=== PATIENT | female | born 1960 | race Caucasian/White ===

== ENCOUNTER → 2016-09-27 | Outpatient (CLI) | payer BC, OTHER ==
[~2016-09-27] MED LIST: ADVIN50050 INH; CETI10TA84 PO; LAMO100T16 PO; SNG10 PO; SYN100 PO
--- NOTE | 2016-09-27 08:54 | DIAGNOSTIC IMAGING REPORT ---
EXAMINATION: RENAL ULTRASOUND CLINICAL HISTORY: Left-sided abdominal pain COMPARISON STUDY: FINDINGS: The right kidney measures 11.4 cm. The left kidney measures 11.1 cm. There is no evidence of hydronephrosis. There are no renal masses. No bladder abnormalities are visualized. Bilateral ureteral jets were visualized. IMPRESSION : Normal renal ultrasound. Electronically signed by: Kenny Jameson M.D. 09/27/2016 8:53 AM Dictated Date/Time: 09/27/2016 8:47 AM
== END | disposition home or self-care (01) ==
LOC: C.ULTRBC 08:19
PROVIDERS: ATTEND Family Medicine
DX: M54.9 Dorsalgia, unspecified (principal); R10.812 Left upper quadrant abdominal tenderness

== ENCOUNTER → 2016-10-05 | Outpatient (CLI) | payer BC, OTHER ==
--- NOTE | 2016-10-05 15:01 | DIAGNOSTIC IMAGING REPORT ---
CT SCAN OF THE ABDOMEN AND PELVIS WITHOUT CONTRAST CLINICAL HISTORY: Left upper quadrant abdominal pain. Possible renal colic. COMPARISON STUDY: No previous studies for comparison. TECHNIQUE: CT scan of the abdomen and pelvis was performed from the lung bases to the proximal femurs. Images are reviewed in the axial, sagittal, and coronal planes. IV contrast was not administered for this examination. CT DOSE: 1050.66 mGycm FINDINGS: Lower chest: The heart is normal in size and configuration, without pericardial effusion. The lung bases and pleural spaces are clear. Liver: Multiple subcentimeter hepatic hypodensities are visualized. These approach water attenuation likely reflect cysts or biliary hamartomas.. Gallbladder: Cholelithiasis. Spleen: Normal in size and attenuation. And Pancreas: Unremarkable. Adrenal glands: Unremarkable. Kidneys: There are nonobstructing bilateral renal calculi. The largest calculus is located on the right measuring 3 mm. No ureteral or bladder calculi are visualized. Bowel: There are no transition zones indicate bowel obstruction. There is no acute diverticulitis. The appendix is normal. Peritoneum: There is no intraperitoneal free air or abdominal ascites. There is a ringlike fatty density within the left lower quadrant consistent with a area of prior fatty process. Vasculature: The abdominal aorta is normal in course and caliber. Adenopathy: None. Pelvic viscera: There is a 43 mm ringlike calcification within the uterus, consistent with a degenerating fibroid Skeletal structures: No destructive osseous lesions are seen. IMPRESSION: 1. Bilateral nephrolithiasis. No ureteral or bladder calculi identified 2. No evidence of bowel obstruction. No evidence of free air 3. Cholelithiasis 4. Normal appendix 5. Scattered colonic diverticula. No evidence of acute diverticulitis 6. 43 mm degenerating fibroid 7. 27 mm area of fat necrosis within the peritoneum of the left lower quadrant 8. Nonspecific subcentimeter hypodensities within the liver, likely reflecting small cysts or hamartomas Electronically signed by: Kenny Jameson M.D. 10/05/2016 3:00 PM Dictated Date/Time: 10/05/2016 2:53 PM
== END | disposition home or self-care (01) ==
LOC: C.CTS 13:20
PROVIDERS: ATTEND Family Medicine
DX: M54.9 Dorsalgia, unspecified (principal); R10.812 Left upper quadrant abdominal tenderness; N20.0 Calculus of kidney; K80.20 Calculus of gallbladder without cholecystitis without obstruction; K57.30 Diverticulosis of large intestine without perforation or abscess without bleeding; D21.9 Benign neoplasm of connective and other soft tissue, unspecified; K65.4 Sclerosing mesenteritis; R93.2 Abnormal findings on diagnostic imaging of liver and biliary tract

== ENCOUNTER → 2016-11-26 | Outpatient (CLI) | payer BC, OTHER ==
--- NOTE | 2016-11-30 14:57 | MAMMOGRAPHY REPORT ---
BILATERAL DIGITAL SCREENING MAMMOGRAM TOMOSYNTHESIS WITH CAD: 11/26/2016 CLINICAL HISTORY: Routine screening. Patient has no complaints. TECHNIQUE: Breast tomosynthesis in addition to standard 2D mammography was performed. Current study was also evaluated with a Computer Aided Detection (CAD) system. COMPARISON: Comparison is made to exams dated: 11/01/2014 mammogram, 11/05/2015 mammogram, 10/30/2013 ma mmogram, 08/01/2012 mammogram, 07/15/2011 mammogram - [facility], and 10/16/2008. BREAST COMPOSITION: There are scattered areas of fibroglandular density in both breasts. FINDINGS: No suspicious masses, calcifications, or areas of architectural distortion are noted in e ither breast. There has been no significant interval change compared to prior exams. IMPRESSION: ACR BI-RADS CATEGORY 1: NEGATIVE There is no mammographic evidence of malignancy. A 1 year screening mammogram is recommended. The p atient will receive written notification of the results. Approximately 10% of breast cancers are not detected with mammography. A negative mammographic repor t should not delay biopsy if a clinically suggestive mass is present. Brisa Henao M.D. ah/:11/26/2016 16:32:08 Muff Winder: Janina [place](Eduardo)(Dary), [facility] letter sent: Normal 1/2 BI-RADS Code: ACR BI-RADS Category 1: Negative
== END | disposition home or self-care (01) ==
LOC: C.MAMM 11:23
PROVIDERS: ATTEND Nurse Practitioner
DX: Z12.31 Encounter for screening mammogram for malignant neoplasm of breast (principal)

== ENCOUNTER → 2017-04-26 | Outpatient (CLI) | payer BC, OTHER ==
--- NOTE | 2017-04-26 16:03 | DIAGNOSTIC IMAGING REPORT ---
CHEST 2 VIEWS ROUTINE HISTORY: Chronic atypical chest pain. COMPARISON: Chest 08/31/2013. FINDINGS: The lungs are clear. Cardiac silhouette is normal in size. No pleural effusions. No pneumothorax. IMPRESSION: No acute process. Electronically signed by: Idris Interiano M.D. 04/26/2017 4:01 PM Dictated Date/Time: 04/26/2017 4:00 PM
== END | disposition home or self-care (01) ==
LOC: C.RAD1850 15:34
PROVIDERS: ATTEND Nurse Practitioner Family
DX: G89.29 Other chronic pain (principal); M25.50 Pain in unspecified joint; H04.123 Dry eye syndrome of bilateral lacrimal glands; R53.81 Other malaise; L95.9 Vasculitis limited to the skin, unspecified

== ENCOUNTER 2020-03-30 05:40 | Observation (INO) ==
[2020-03-30] MEDS ORDERED: NITROGLYCERIN SL 0.4 MG/TAB TAB SL STA (05:49)
--- NOTE | 2020-03-30 05:55 | Emergency Department Note ---
Impression & Plan Substernal chest pain ED Provider Note Name: KENN AGUILAR Age: 59 Sex: F Arrives Via: Ambulance Informant: Patient ED Provider: Jose Cruz MD Chief Complaint: Chest Pain Impression: Substernal Chest Pain Medical Decision Makin yr old female with history Asthma, Allergies, Seizure, HTN, Hypothyroid, Migraines, DLP, Kidney Stones though no CAD history who arrives with substernal chest pressure. Initial exam benign with clear lungs, soft abdomen and good pulses. EKG OK and cxr unremarkable. Labs unremarkable. She notes chest pain resolved with SLNTG here. Given age and risk will need cardiac rule out and hospitalist consulted for further management. Triage/Nursing Notes reviewed by Me Additional history obtained from chart Differentials:Cardiac ischemia, aortic dissection, pulmonary embolism, pneumothorax, pneumonia, pericarditis, myocarditis, esophageal rupture, GERD, cholecystitis, pancreatitis, musculoskeletal, as well as other pathologies. Vital Signs: reviewed and remarkable for HTN Interventions: SLNTG Labs:Reviewed and remarkable for no significant abnormalities Imaging:X ray results are stated below per my interpretation: Chest: 1 view: No infiltrate, no effusion, normal cardiac border. EKG:Per My Interpretation: Indication Chest pain: NSR 75 bpm, qtc 431. No Ectopy. No Ischemia. No previous for comparison Cardiac/Tele Monitoring: Cardiac Monitoring: An Order was placed for continuous cardiac monitoring. The monitor shows a rate of 80 with a normal sinus rhythm. Consults:Dr Johnathan HINOJOSA Hospitalist Plan: Disposition:Hospitalization. Condition: Good History of Present Illness:59 yr old female arrives for evaluation of chest pain. Patient notes that she was awoken around 2:30 am with substernal chest pressure. Initially mild but gradually worsening. Came and went a bit over the next hour. Nothing made better nor worse. Associated dizziness, mild short of breath and feeling weak. No radiation of pain. Denies syncope, nausea, vomiting, abdominal pain, back pain, fevers, chills, leg swelling, calf pain, headache, neck pain, urinary/bowel changes, rashes nor other symptoms. EMS contacted and brought her to ED for further evaluation. ASA 324mg PO given by EMS. No recent travel nor pe/dvt risks. No known sick contacts nor covid exposure. Notes recent addition of chlorthalidone for HTN management about a week ago. ROS: See above HPI for pertinent positives & negatives. A total of 10 systems reviewed and were otherwise negative. Past Medical History:Asthma, Allergies, Seizure, HTN, Hypothyroid, Migraines, DLP, Kidney Stones Past Surgical History:Laproscopy, Arthroscopy Family History:Grandparents had strokes Social History:, lives alone, no smoking Home Medications:See Below Allergies:Tegretal, depakot, dilantin Vitals:Blood Pressure: 140/86, Pulse 73, RR 16, T 36.6C, O2 97% on RA Physical Exam: GENERAL: Patient is anxious appearing and in mild distress. EYES: No scleral icterus, unremarkable pupils. ENT: Mucous membranes moist, no nasal congestion. NECK: No masses appreciated, nomeningismus, trachea is midline. RESPIRATORY: No dyspnea. Clear to auscultation and equal bilaterally. No wheeze, no rhonchi. CARDIOVASCULAR: Regular rate and rhythm.No murmurs, rubs, gallops appreciated. GASTROINTESTINAL: Abdomen soft, non-tender, no peritonitis.Bowel sounds positive.No masses appreciated. BACK: No midline tenderness, no CVA tenderness EXTREMITIES: Normal motion all extremities, no cyanosis, no edema. NEUROLOGIC: Alert and oriented, no acute motor or sensory deficits, no focal weakness, cranial nerves grossly intact. SKIN: No rash, no jaundice, no diaphoresis. PSYCH: Appropriate GCS: 15 ED Course: Times/Reassessments: Resolution of pain with slntg Jose Cruz MD Past Med/Surg History Medical History (Updated 03/30/20 @ 13:49 by John Mann MD) Asthma Cataract and glaucoma syndrome Chronic back pain Congenital anomaly of cerebrovascular system Gall stone Hyperlipidemia Hypothyroidism Kidney stones Migraine Osteoarthritis Rheumatoid arthritis Seizure Surgical History History of arthroscopy History of laparoscopy Family History (Updated 03/30/20 @ 13:45 by John Mann MD) Brother Deep vein thrombosis Grandfather (Maternal) Deep vein thrombosis Grandfather (Paternal) Deep vein thrombosis Other Cancer Diabetes Hypertension Stroke Social History Smoking Status: Never smoker Hx Alcohol Use: Yes Alcohol type: wine Hx Substance Use: No Preferred Language: Armenian Communication Ability: Effective 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: No Beliefs That Will Affect Care: None marital status: / Current Living Situation: Alone Other Information That Helps Us Care for You: No Feels Safe at Home: Yes Safety Concerns: Feels Safe At This Time Assistive Devices: None Allergies Allergies Allergy/AdvReac Type Severity Reaction Status Date / Time carbamazepine [From Tegretol] Allergy Intermediate Hives Verified 03/30/20 06:30 divalproex sodium Allergy Intermediate Hives Verified 03/30/20 06:30 [From Depakote] phenytoin [From Dilantin] Allergy Intermediate Hives Verified 03/30/20 06:30 Home Meds Home Medications Medication Instructions Recorded Confirmed levothyroxine 100 mcg PO DAILY 03/20/18 03/30/20 simvastatin 40 mg PO PM 03/20/18 03/30/20 rizatriptan 10 mg disintegrating 10 mg PO .COMPLEX PRN tab 01/31/19 03/30/20 tablet lamotrigine 100 mg tablet 100 mg PO BID 11/12/19 03/30/20 chlorthalidone 25 mg PO Q OTHER DAY 03/30/20 03/30/20 omeprazole 20 mg PO DAILY 03/30/20 03/30/20 Previous Rx's Medication Instructions Recorded cetirizine 10 mg capsule 10 mg PO DAILY #90 cap 04/20/19 albuterol sulfate 90 mcg/actuation 2 puffs INHALATION .COMPLEX PRN #3 09/24/19 aerosol inhaler inhaler budesonide-formoterol HFA 160 2 puffs INH BID #3 inhaler 09/27/19 mcg-4.5 mcg/actuation aerosol inhaler montelukast 10 mg tablet 10 mg PO DAILY #90 tab 01/08/20 Results & Data (ED) Vital Signs Vital Signs - 24 hr 03/30/20 05:49 03/30/20 06:00 03/30/20 06:30 Temperature 36.6 C Temperature Source Oral Pulse Rate 80 80 73 Pulse Rate [Left Finger] Pulse Rate from SpO2 Sensor 80 74 Respiratory Rate 17 18 17 Respiratory Effort / Characteristics Non-Labored Spontaneous Respiratory Depth Normal Blood Pressure 159/81 H 141/79 H 140/86 Blood Pressure [Left Arm] Blood Pressure Mean 107 89 106 Blood Pressure Mean [Left Arm] Pulse Oximetry 99 95 97 Oxygen Delivery Method Room Air Room Air Room Air Sepsis New/Unexplained Change in Mental Status N/A Sepsis Action Taken by Nursing No Action Required 03/30/20 06:58 Temperature Temperature Source Pulse Rate Pulse Rate [Left Finger] 73 Pulse Rate from SpO2 Sensor Respiratory Rate 16 Respiratory Effort / Characteristics Respiratory Depth Blood Pressure Blood Pressure [Left Arm] 140/86 Blood Pressure Mean Blood Pressure Mean [Left Arm] 104 Pulse Oximetry 97 Oxygen Delivery Method Room Air Sepsis New/Unexplained Change in Mental Status Sepsis Action Taken by Nursing Laboratory Data Result diagrams: 03/30/20 05:45 03/30/20 05:45 Lab Results 03/30/20 03/30/20 03/30/20 Range/Units 05:45 05:45 05:45 WBC 8.18 (4.8-10.8) K/uL RBC 5.02 (4.2-5.4) M/uL Hgb 14.0 (12.0-16.0) g/dL Hct 43.1 (37-47) % MCV 85.9 (80-100) fL MCH 27.9 (25-34) pg MCHC 32.5 (32-36) g/dL RDW Std Deviation 42.4 (36.4-46.3) fL RDW Coeff of Briana 13.6 (11.5-14.5) % Plt Count 221 (130-400) K/uL MPV 9.4 (7.4-10.4) fL Immature Gran % (Auto) 0.2 % Neut % (Auto) 74.6 % Lymph % (Auto) 15.6 % Rush % (Auto) 6.4 % Eos % (Auto) 2.8 % Baso % (Auto) 0.4 % Neut # (Auto) 6.10 (1.4-6.5) K/uL Lymph # (Auto) 1.28 (1.2-3.4) K/uL Rush # (Auto) 0.52 (0.11-0.59) K/uL Eos # (Auto) 0.23 (0-0.5) K/uL Baso # (Auto) 0.03 (0-0.2) K/uL Immature Gran # (Auto) 0.02 (0.00-0.02) K/uL Sodium 137 (136-145) mmol/L Potassium 3.6 (3.5-5.1) mmol/L Chloride 101 (98-107) mmol/L Carbon Dioxide 28 (21-32) mmol/L Anion Gap 8.0 (3-11) BUN 26 H (7-18) mg/dl Creatinine 0.82 (0.6-1.2) mg/dl Est Cr Clr Drug Dosing 86.5 ml/min Est GFR ( Amer) 90.1 Est GFR (Non-Af Amer) 77.8 BUN/Creatinine Ratio 31.4 H (10-20) Glucose 116 H (70-99) mg/dl Calcium 9.2 (8.5-10.1) mg/dl Total Bilirubin 0.4 (0.2-1) mg/dl Direct Bilirubin < 0.1 (0-0.2) mg/dl AST 17 (15-37) U/L ALT 25 (12-78) U/L Alkaline Phosphatase 69 (45-117) U/L Troponin I < 0.015 (0-0.045) ng/ml Total Protein 6.8 (6.4-8.2) gm/dl Albumin 3.6 (3.4-5.0) gm/dl Lipase 104 (73-393) U/L Hepatitis C Ab Screen Neg (Neg) Administered Medications Cetirizine HCl (Cetirizine Hcl 10 Mg Tablet) 10 mg PO DAILY TRACY Stop: 04/29/20 11:29 Last Admin: 03/30/20 13:05 Dose: 10 mg Documented by: [id number] Chlorthalidone (Chlorthalidone 25 Mg Tab) 25 mg PO Q2D TRACY Stop: 04/29/20 11:29 Last Admin: 03/30/20 13:03 Dose: 25 mg Documented by: [id number] Lamotrigine (Lamotrigine 100 Mg Tab) 100 mg PO BID TRACY Stop: 04/29/20 11:29 Last Admin: 03/30/20 20:23 Dose: 100 mg Documented by: [id number] Admin: 03/30/20 13:03 Dose: 100 mg Documented by: [id number] Levothyroxine Sodium (Levothyroxine Sodium 100 Mcg Tablet) 100 mcg PO DAILYBB TRACY Stop: 04/29/20 11:29 Last Admin: 03/30/20 13:04 Dose: 100 mcg Documented by: [id number] Montelukast Sodium (Montelukast Sodium 10 Mg Tablet) 10 mg PO HS TRACY Stop: 04/29/20 20:59 Last Admin: 03/30/20 20:23 Dose: 10 mg Documented by: [id number] Simvastatin (Simvastatin 40 Mg Tab) 40 mg PO PM TRACY Stop: 04/29/20 20:59 Last Admin: 03/30/20 20:23 Dose: 40 mg Documented by: [id number] Discontinued Medications Nitroglycerin (Nitroglycerin Sl 0.4 Mg/Tab Tab) 0.4 mg SL NOW STA Stop: 03/30/20 05:50 Last Admin: 03/30/20 05:57 Dose: 0.4 mg Documented by: [id number] Discharge Plan Visit Data Chief Complaint: Cardiac Assessment Stated Complaint: CARDIAC ASSESSMENT ED Provider: Jose Cruz Discharge Problem: Substernal chest pain Patient Disposition: Admitted As Inpatient Discharge Instructions Interventions: ED Discharge Assessment Last Done: 03/30/20 09:26
[2020-03-30 05:59] LABS: Basophils # (auto) 0.03 K/uL (0-0.2); Basophils % (auto) 0.4 %; Eosinophils # (auto) 0.23 K/uL (0-0.5); Eosinophils % (auto) 2.8 %; Hematocrit (blood only) 43.1 % (37-47); Immature Granulocytes # (auto) 0.02 K/uL (0.00-0.02); Immature Granulocytes % (auto) 0.2 %; Lymphocytes # (auto) 1.28 K/uL (1.2-3.4); Lymphocytes % (auto) 15.6 %; Mean Corpuscular Hemoglobin 27.9 pg (25-34); Mean Corpuscular Hgb Conc 32.5 g/dL (32-36); Mean Corpuscular Volume 85.9 fL (80-100); Mean Platelet Volume 9.4 fL (7.4-10.4); Monocytes # (auto) 0.52 K/uL (0.11-0.59); Monocytes % (auto) 6.4 %; Neutrophils % (auto) 74.6 %; Platelet Count 221 K/uL (130-400); RDW Coefficient of Variation 13.6 % (11.5-14.5); RDW Standard Deviation 42.4 fL (36.4-46.3); Red Blood Count 5.02 M/uL (4.2-5.4); White Blood Count 8.18 K/uL (4.8-10.8)
[2020-03-30 06:18] LABS: Alanine Aminotransferase 25 U/L (12-78); Albumin Level 3.6 gm/dl (3.4-5.0); Aspartate Aminotransferase 17 U/L (15-37); BUN Creatinine Ratio 31.4 (10-20); Bilirubin Direct < 0.1 mg/dl (0-0.2); Blood Urea Nitrogen 26 mg/dl (7-18); Calcium 9.2 mg/dl (8.5-10.1); Carbon Dioxide 28 mmol/L (21-32); Chloride 101 mmol/L (98-107); Creatinine Clr Calc Pharmacy 86.5 ml/min; Est GFR (African American) 90.1; Est GFR (Non-African American) 77.8; Glucose 116 mg/dl (70-99); Lipase 104 U/L (73-393); Potassium 3.6 mmol/L (3.5-5.1); Sodium 137 mmol/L (136-145)
[2020-03-30 06:23] LABS: Alkaline Phosphatase 69 U/L (45-117); Bilirubin,Total 0.4 mg/dl (0.2-1); Total Protein 6.8 gm/dl (6.4-8.2); Troponin I < 0.015 ng/ml (0-0.045)
--- NOTE | 2020-03-30 08:03 | XRay Report ---
XR chest 1V portable HISTORY: 59 years-old Female chest pain acute dizziness with shortness of breath and midsternal ches t pain COMPARISON: Chest radiographs 04/26/2017 TECHNIQUE: Portable AP view of the chest FINDINGS: Cardiomediastinal and hilar silhouettes are within normal limits. No pneumothorax, pleural effusion, airspace consolidation or overt pulmonary edema. Bones of the chest appear grossly intact. IMPRESSION: No acute process. ACT 112: Negative or not required by law. The above report was generated using voice recognition software. It may contain grammatical, syntax o r spelling errors. Electronically signed by: Travon Louis M.D. 03/30/2020 8:02 AM
[2020-03-30] MEDS ORDERED: ACETAMINOPHEN 325 MG TAB PO PRN (11:30)
[2020-03-30] MEDS ORDERED: NITROGLYCERIN SL 0.4 MG/TAB TAB SL PRN (11:30)
[2020-03-30] MEDS ORDERED: CHLORTHALIDONE 25 MG TAB PO SCH (11:30)
[2020-03-30] MEDS ORDERED: ALBUTEROL HFA 8 GM INHALER INH PRN (11:30)
[2020-03-30] MEDS ORDERED: ONDANSETRON INJ 2 MG/ML 2 ML VIAL IV PRN (11:30)
--- NOTE | 2020-03-30 11:48 | Electrocardiogram Report ---
Test Reason : Blood Pressure : / mmHG Vent. Rate : 075 BPM Atrial Rate : 075 BPM P-R Int : 142 ms QRS Dur : 094 ms QT Int : 386 ms P-R-T Axes : 036 -15 009 degrees QTc Int : 431 ms Normal sinus rhythm Minimal voltage criteria for LVH, may be normal variant Borderline ECG No previous ECGs available Confirmed by Romero Barroso ([id number]) on 03/30/2020 11:48:10 AM Referred By: REFERRED SELF Confirmed By:Romero Barroso
[2020-03-30] MEDS: lamoTRIgine 100 MG TAB PO SCH ×2 (13:03→20:23)
[2020-03-30] MEDS: LEVOTHYROXINE SODIUM 100 MCG TABLET PO SCH (13:04)
[2020-03-30] MEDS: CETIRIZINE HCL 10 MG TABLET PO SCH (13:05)
--- NOTE | 2020-03-30 13:51 | History & Physical Report ---
Date of Service March 30, 2020 Assessment & Plan (1) Substernal chest pain: EKG and troponins both negative; however, with convincing story, age, and risk factors, Heart score is 5, making her moderate risk (12-15% risk of MACE in 30 days). Patient and brother were interested in staying for a stress test. - Trend troponins and EKGs - Telemetry - Exercise stress test in the morning (2) Hypertension: Was recently put on chlorthalidone 25 mg PO every other day. Typically her BP runs 130/80 at home she reports. - Continue chlorthalidone QOD (3) Asthma: No present shortness of breath. - Continue home maintenance and rescue inhalers - Continue cetirizine and montelukast (4) Seizure disorder: None in many years. - Continue lamotrigine (5) Hyperlipidemia: - Continue statin (6) Hypothyroidism: No TSH in system; however, no hypo-/hyperthyroid issues. - Continue home levothyroxine 100 mcg daily (7) DVT prophylaxis: SCDs - Low DVT risk per admission calculator Admission and Anticipated Discharge Date Admission Date: March 30, 2020 History of Present Illness Primary Care Provider: Nawaf Vázquez MD 59yo F w/ hx of HTN and HLD who presents with chest pain. The pain began around 2:30am when she got up to use the restroom. She reports that she had a pressure sensation in the chest with shortness of breath, dizziness, some left arm numbness, and tingling of both fingers. She denies any nausea/vomiting or palpitations with the episode. She checked her blood pressure which was 110/80. She kept checking it, and it eventually went as high as SBP of 170. She called EMS at this time. The tingling resolved prior to EMS arrival, and she reports that the chest pressure resolved with nitroglycerin from EMS. She had a slight recurrence in the ED which again resolved with nitroglycerin. At the time of interview, she is in no distress. No further chest pain and all the associated symptoms have also resolved. She does have a family history of blood clots, but no PA/CVA that she is aware of. Allergies Allergy/AdvReac Type Severity Reaction Status Date / Time carbamazepine [From Tegretol] Allergy Intermediate Hives Verified 03/30/20 06:30 divalproex sodium Allergy Intermediate Hives Verified 03/30/20 06:30 [From Depakote] phenytoin [From Dilantin] Allergy Intermediate Hives Verified 03/30/20 06:30 Home Medications Home Medications Medication Instructions Recorded Confirmed Type levothyroxine 100 mcg PO DAILY 03/20/18 03/30/20 History simvastatin 40 mg PO PM 03/20/18 03/30/20 History rizatriptan 10 mg disintegrating 10 mg PO .COMPLEX PRN tab 01/31/19 03/30/20 History tablet cetirizine 10 mg capsule 10 mg PO DAILY #90 cap 04/20/19 03/30/20 Rx albuterol sulfate 90 mcg/actuation 2 puffs INHALATION .COMPLEX PRN #3 09/24/19 03/30/20 Rx aerosol inhaler inhaler budesonide-formoterol HFA 160 2 puffs INH BID #3 inhaler 09/27/19 03/30/20 Rx mcg-4.5 mcg/actuation aerosol inhaler lamotrigine 100 mg tablet 100 mg PO BID 11/12/19 03/30/20 History montelukast 10 mg tablet 10 mg PO DAILY #90 tab 01/08/20 03/30/20 Rx chlorthalidone 25 mg PO Q OTHER DAY 03/30/20 03/30/20 History omeprazole 20 mg PO DAILY 03/30/20 03/30/20 History Past Med/Surg History Medical History Asthma Cataract and glaucoma syndrome Chronic back pain Congenital anomaly of cerebrovascular system Gall stone Hyperlipidemia Hypothyroidism Kidney stones Migraine Osteoarthritis Rheumatoid arthritis Seizure Surgical History History of arthroscopy History of laparoscopy Family History (Updated 03/30/20 @ 13:45 by John Mann MD) Brother Deep vein thrombosis Grandfather (Maternal) Deep vein thrombosis Grandfather (Paternal) Deep vein thrombosis Other Cancer Diabetes Hypertension Stroke Social History Smoking Status: Never smoker Hx Alcohol Use: Yes Alcohol type: wine Hx Substance Use: No Preferred Language: Greek Communication Ability: Effective Hand Cigar Maker Required: No Beliefs That Will Affect Care: None marital status: / Current Living Situation: Alone Other Information That Helps Us Care for You: No Feels Safe at Home: Yes Safety Concerns: Feels Safe At This Time Assistive Devices: Glasses Review of Systems Review of Systems: All systems reviewed & are unremarkable except as noted in HPI & below Physical Exam Constitutional: WD/WN, vitals as above Eyes: EOM intact bilaterally; no conjunctival abnormality ENMT: external ear and nose normal, oropharynx normal Neck: trachea midline, no thyromegaly normal visual inspection Respiratory: normal respiratory effort, lungs clear to auscultation no respiratory distress Cardiovascular: RRR, no murmur, no edema Gastrointestinal (Abdomen): Inspection/Auscultation: abdomen normal to inspection; abdomen not distended Musculoskeletal: no cyanosis or clubbing, extremities motor strength 5/5 Skin: no rashes, warm and dry Neurologic: moves all extremities and awake Psychiatric: Orientation: alert, oriented to person and cooperative Results & Data Results & Data ([facility]) Vital Signs (Past 12 Hours) Vital Signs Temp Pulse Pulse Resp BP BP BP 03/30/20 10:22 36.4 C L 71 18 130/81 03/30/20 09:21 78 16 137/87 03/30/20 08:25 77 20 135/81 03/30/20 06:58 73 16 140/86 03/30/20 06:30 73 17 140/86 03/30/20 06:00 80 18 141/79 H 03/30/20 05:49 36.6 C 80 17 159/81 H Pulse Ox 03/30/20 10:22 96 03/30/20 09:21 95 03/30/20 08:25 96 03/30/20 06:58 97 03/30/20 06:30 97 03/30/20 06:00 95 03/30/20 05:49 99 Code Status & VTE Plan VTE Prophylaxis Plan VTE Prophylaxis will be ordered: Yes PG Care Time/CCT Total # of Minutes Spent Total Time Spent with Patient: Total time spent is greater than 50% in coordination of care (as documented) at patient's floor/unit and/or counseling patient: Coding Level of Care Code 58501 OBS Care - Level 3 Diagnoses Substernal chest pain R07.2 Hypertension I10 Asthma J45.909 Seizure disorder G40.909 Hyperlipidemia E78.5 Hypothyroidism E03.9 DVT prophylaxis Z29.9
[2020-03-30] MEDS ORDERED: SIMVASTATIN 40 MG TAB PO SCH (21:00)
[2020-03-30] MEDS ORDERED: MONTELUKAST SODIUM 10 MG TABLET PO SCH (21:00)
[2020-03-31] MEDS: LEVOTHYROXINE SODIUM 100 MCG TABLET PO SCH (06:18)
[2020-03-31] MEDS: CETIRIZINE HCL 10 MG TABLET PO SCH (10:02)
[2020-03-31] MEDS: lamoTRIgine 100 MG TAB PO SCH (10:02)
[2020-03-31] MEDS ORDERED: FLUTICASONE/VILANTEROL 200/25MCG 14 PUFFS/INHALER INH SCH (11:30)
--- NOTE | 2020-03-31 14:10 | XCELERA ---
[id number]
--- NOTE | 2020-03-31 16:39 | Discharge Summary ---
Date of Service March 31, 2020 Admission HPI Per Admitting Provider 59yo F w/ hx of HTN and HLD who presents with chest pain. The pain began around 2:30am when she got up to use the restroom. She reports that she had a pressure sensation in the chest with shortness of breath, dizziness, some left arm numbness, and tingling of both fingers. She denies any nausea/vomiting or palpitations with the episode. She checked her blood pressure which was 110/80. She kept checking it, and it eventually went as high as SBP of 170. She called EMS at this time. The tingling resolved prior to EMS arrival, and she reports that the chest pressure resolved with nitroglycerin from EMS. She had a slight recurrence in the ED which again resolved with nitroglycerin. At the time of interview, she is in no distress. No further chest pain and all the associated symptoms have also resolved. She does have a family history of blood clots, but no MO/CVA that she is aware of. Principal Diagnosis Chest pain - Likely non-cardiac Discharge Exam Constitutional WD/WN, vitals as above Eyes EOM intact bilaterally; no conjunctival abnormality ENMT external ear and nose normal, oropharynx normal Neck trachea midline, no thyromegaly normal visual inspection Respiratory normal respiratory effort, lungs clear to auscultation no respiratory distress Cardiovascular RRR, no murmur, no edema Gastrointestinal (Abdomen) Inspection/Auscultation: abdomen normal to inspection; abdomen not distended Musculoskeletal no cyanosis or clubbing, extremities motor strength 5/5 Skin no rashes, warm and dry Neurologic moves all extremities and awake Psychiatric Orientation: alert, oriented to person and cooperative Discharge Data Allergies Allergy/AdvReac Type Severity Reaction Status Date / Time carbamazepine [From Tegretol] Allergy Intermediate Hives Verified 03/30/20 06:30 divalproex sodium Allergy Intermediate Hives Verified 03/30/20 06:30 [From Depakote] phenytoin [From Dilantin] Allergy Intermediate Hives Verified 03/30/20 06:30 Consultations 03/30/20 06:55 ED Decision to Admit Stat Hospital Course (1) Substernal chest pain: EKG and troponins both negative; however, with convincing story, age, and risk factors, Heart score is 5, making her moderate risk (12-15% risk of MACE in 30 days). Patient and brother were interested in staying for a stress test. - Trend troponins and EKGs -> All negative. - Exercise stress test in the morning was non-diagnostic. The stress echo images were not loaded appropriately. She was willing to repeat the stress test as an outpatient with her PCP. (2) Hypertension: Was recently put on chlorthalidone 25 mg PO every other day. Typically her BP runs 130/80 at home she reports. - Continue chlorthalidone QOD (3) Asthma: No present shortness of breath. - Continue home maintenance and rescue inhalers - Continue cetirizine and montelukast (4) Seizure disorder: None in many years. - Continue lamotrigine (5) Hyperlipidemia: - Continue statin (6) Hypothyroidism: No TSH in system; however, no hypo-/hyperthyroid issues. - Continue home levothyroxine 100 mcg daily (7) DVT prophylaxis: SCDs - Low DVT risk per admission calculator Total Time Total Time Spent Total Time Spent (In Minutes): 35 Discharge Plan Discharge Items Patient Disposition: Home - Self-Care Reason For Visit: CHEST PAIN Discharge Diagnosis: Chest pain - Non-cardiac Activity: Resume your previous activity Non-emergency contact: Primary Care Provider Call non-emergency contact if: your symptoms worsen Follow-up/Referrals: Nawaf Vázquez MD [Primary Care Provider] - 04/04/20 1:30 pm Diet: Heart Healthy Addtl Attending Provider Instructions: Ms. Canales, You were admitted to the hospital with chest pain. We were concerned about your heart; however, our testing indicates you did NOT have a heart attack. We did a stress test which shows your heart is squeezing well at rest. Your EKG showed no sign of heart stress while exercising. However, the repeat ultrasound of your heart was not saved, so technically this stress test is considered non- diagnostic. Please speak with your PCP about rescheduling this as an outpatient. Please try to take your omeprazole two times a day for the next week. If your chest pain continues, please speak with Dr. Vázquez about it on Tuesday. Pending Studies at Discharge: No Stand-Alone Forms: My Active-Semi, Smoking Cessation Medications and DC Order Prescriptions: Continued Zyrtec 10 mg capsule 10 mg PO DAILY Qty: 90 RF: 3 albuterol sulfate 90 mcg/actuation HFA aerosol inhaler 2 puffs inhalation .COMPLEX PRN (Reason: Asthma) Qty: 3 RF: 3 budesonide-formoterol [Symbicort] 160-4.5 mcg/actuation HFA aerosol inhaler 2 puffs INH BID Qty: 3 RF: 3 montelukast 10 mg tablet 10 mg PO DAILY Qty: 90 RF: 3 lamotrigine [Lamictal] 100 mg tablet 100 mg PO BID RF: 0 rizatriptan 10 mg tablet,disintegrating 10 mg PO .COMPLEX PRN (Reason: MIGRAIN HEADACHE) RF: 0 levothyroxine 100 mcg Capsule 100 mcg PO DAILY RF: 0 simvastatin 40 mg Tablet 40 mg PO PM RF: 0 chlorthalidone 25 mg tablet 25 mg PO Q OTHER DAY RF: 0 Changed omeprazole 20 mg capsule,delayed release(DR/EC) 20 mg PO BID Qty: 0 RF: 0 Discharge Orders: Discharge Order (Routine); Ordered 03/31/20 Ordered By: John Mann Admission Data Admit Date/Time: 03/30/20 08:10 Attending Provider: John Mann Admit Provider: John Mann Primary Care Provider: Nawaf Vázquez Other Providers: Tamika Corral Coding Level of Care Code 66473 OBS Care - Discharge Diagnoses Substernal chest pain R07.2 Hypertension I10 Asthma J45.909 Seizure disorder G40.909 Hyperlipidemia E78.5 Hypothyroidism E03.9 DVT prophylaxis Z29.9
--- NOTE | 2020-04-01 06:01 | Electrocardiogram Report ---
Test Reason : Blood Pressure : / mmHG Vent. Rate : 069 BPM Atrial Rate : 069 BPM P-R Int : 148 ms QRS Dur : 098 ms QT Int : 388 ms P-R-T Axes : 041 -13 010 degrees QTc Int : 415 ms Normal sinus rhythm Normal ECG When compared with ECG of 30-MAR-2020 05:41, No significant change was found Confirmed by Mitchell Lord ([id number]) on 04/01/2020 6:01:07 AM Referred By: REFERRED SELF Confirmed By:Mitchell Lord
== END 2020-03-31 17:18 | disposition home or self-care (01) ==
LOC: ED 05:40 → 2N 05:40
DX: J45.909 Unspecified asthma, uncomplicated; R07.2 Precordial pain; E03.9 Hypothyroidism, unspecified; Z88.8 Allergy status to other drugs, medicaments and biological substances; G40.909 Epilepsy, unspecified, not intractable, without status epilepticus; Z79.890 Hormone replacement therapy; Z79.899 Other long term (current) drug therapy; I10 Essential (primary) hypertension; E78.5 Hyperlipidemia, unspecified

== ENCOUNTER 2021-03-17 22:32 | Inpatient (IN) ==
[2021-03-18] MEDS ORDERED: SODIUM CHLORIDE 0.9% 1000ML 1,000 ML IV STA (00:06)
[2021-03-18] MEDS ORDERED: ACETAMINOPHEN 1,000 MG/100 ML VIAL IV STA (00:06)
[2021-03-18 00:07] LABS: Basophils # (auto) 0.04 K/uL (0-0.2); Basophils % (auto) 0.4 %; Eosinophils # (auto) 0.24 K/uL (0-0.5); Eosinophils % (auto) 2.6 %; Hematocrit (blood only) 44.2 % (37-47); Hemoglobin 14.4 g/dL (12.0-16.0); Immature Granulocytes # (auto) 0.01 K/uL (0.00-0.02); Immature Granulocytes % (auto) 0.1 %; Lymphocytes # (auto) 1.71 K/uL (1.2-3.4); Lymphocytes % (auto) 18.3 %; Mean Corpuscular Hemoglobin 28.6 pg (25-34); Mean Corpuscular Hgb Conc 32.6 g/dL (32-36); Mean Corpuscular Volume 87.9 fL (80-100); Mean Platelet Volume 9.5 fL (7.4-10.4); Monocytes % (auto) 7.5 %; Neutrophils # (auto) 6.66 K/uL (1.4-6.5); Neutrophils % (auto) 71.1 %; Platelet Count 269 K/uL (130-400); RDW Coefficient of Variation 13.7 % (11.5-14.5); RDW Standard Deviation 44.3 fL (36.4-46.3); Red Blood Count 5.03 M/uL (4.2-5.4); White Blood Count 9.36 K/uL (4.8-10.8)
[2021-03-18 00:28] LABS: Albumin Level 3.6 gm/dl (3.4-5.0); BUN Creatinine Ratio 22.6 (10-20); Calcium 8.9 mg/dl (8.5-10.1); Creatinine Clr Calc Pharmacy 70.5 ml/min; Est GFR (Non-African American) 63.8 ml/min; Potassium 3.5 mmol/L (3.5-5.1)
[2021-03-18 00:30] LABS: Bilirubin,Total 0.6 mg/dl (0.2-1); Globulin 3.5 gm/dl (2.5-4.0); Total Protein 7.1 gm/dl (6.4-8.2)
[2021-03-18 00:35] LABS: Appearance Urine Clear (Clear); Bacteria Urine Automated Negative (Negative); Bilirubin Urine Negative (Negative); Blood Urine 2+ (Negative); Color Urine Yellow; Glucose Urine UA Negative (Negative); Ketones Urine Negative (Negative); Leukocyte Esterase Urine 3+ (Negative); Nitrite Urine Negative (Negative); Protein Urine Negative (Negative); Specific Gravity Urine 1.007 (1.000-1.030); Urobilinogen Urine Negative (Negative); WBC Urine Automated >30 /hpf (0-5)
[2021-03-18] MEDS ORDERED: OPTIRAY 320 100ml IV ONE (00:49)
--- NOTE | 2021-03-18 01:20 | Emergency Department Note ---
History of Present Illness General Chief complaint: Abdominal Pain Stated complaint: PAIN IN LOWER RIGHT ABDOMEN AND BACK History of Present Illness Maximum Pain Intensity: 4 This 60-year-old presents to the ER complaining of right flank and right lower quadrant pain for the past 2 days steadily getting worse Location: Right lower abdomen Quality: Discomfort Severity: Moderate Duration: Past few days Timing: Started the other day Context: Patient was concerned and came in Modifying factors: better with rest; worse with activity Patient denies chest pain, dyspnea, fevers, vomiting, diarrhea, urinary symptoms. No prior abdominal surgeries. She had diverticulitis in the past. Home Medications Medication Instructions Recorded Confirmed Type levothyroxine 100 mcg capsule 100 mcg PO QAM 03/20/18 03/18/21 History simvastatin 40 mg tablet 40 mg PO HS 03/20/18 03/18/21 History chlorthalidone 25 mg tablet 25 mg PO Q OTHER DAY 03/30/20 03/18/21 History naproxen sodium 220 mg tablet 220 mg PO Q8H PRN 06/15/20 03/18/21 History (Aleve) omeprazole 20 mg capsule,delayed 20 mg PO QAM 06/15/20 03/18/21 History release cetirizine 10 mg capsule (Zyrtec) 10 mg PO HS #90 cap 07/14/20 03/18/21 Rx montelukast 10 mg tablet 10 mg PO HS #90 tab 01/05/21 03/18/21 Rx budesonide-formoterol HFA 160 2 puff INH BID #3 inhaler 02/02/21 03/18/21 Rx mcg-4.5 mcg/actuation aerosol inhaler (Symbicort) albuterol sulfate 90 mcg/actuation 2 puff INHALATION Q4 PRN 03/18/21 03/18/21 H istory aerosol inhaler Allergies Allergy/AdvReac Type Severity Reaction Status Date / Time carbamazepine [From Tegretol] Allergy Intermediate Hives Verified 03/18/21 00:54 divalproex sodium Allergy Intermediate Hives Verified 03/18/21 00:54 [From Depakote] phenytoin [From Dilantin] Allergy Intermediate Hives Verified 03/18/21 00:54 Past Med/Surg History Medical History Arthritis of left knee Asthma Cataract and glaucoma syndrome Chronic back pain Congenital anomaly of cerebrovascular system Gall stone Hyperlipidemia Hypertension Hypothyroidism Kidney stones MCL sprain of left knee Migraine Osteoarthritis Rheumatoid arthritis Right knee DJD Seizure Surgical History History of arthroscopy History of laparoscopy Family History Brother Deep vein thrombosis Grandfather (Maternal) Deep vein thrombosis Grandfather (Paternal) Deep vein thrombosis Other Cancer Diabetes Hypertension Stroke Social History Smoking Status: Never smoker Hx Alcohol Use: Yes Alcohol type: wine Hx Substance Use: No Preferred Language: Armenian Communication Ability: Effective Appian Bpm Developer Required: No Beliefs That Will Affect Care: None marital status: / Current Living Situation: Alone Feels Safe at Home: Yes Assistive Devices: Glasses Review of Systems A total of 10 systems reviewed and were otherwise negative Physical Exam Vital Signs Vital Signs - 24 hr 03/17/21 22:35 03/18/21 00:42 03/18/21 00:43 Temperature 36.4 C L Temperature Source Temporal Artery Scan Pulse Rate 77 65 Pulse Rate [Finger] 63 Respiratory Rate 18 18 18 Respiratory Effort / Characteristics Non-Labored Spontaneous Non-Labored Spontaneous Respiratory Depth Normal Normal Respiratory Pattern Regular Blood Pressure 191/92 H Blood Pressure [Right Arm] 156/78 H Blood Pressure Mean 125 Blood Pressure Mean [Right Arm] 104 Pulse Oximetry 97 96 98 Oxygen Delivery Method Room Air Room Air Room Air Sepsis Recent Fever Within 48 Hours No Sepsis New/Unexplained Change in Mental Status No Sepsis Action Taken by Nursing No Action Required 03/18/21 01:42 Temperature Temperature Source Pulse Rate Pulse Rate [Finger] 71 Respiratory Rate 18 Respiratory Effort / Characteristics Non-Labored Spontaneous Respiratory Depth Normal Respiratory Pattern Blood Pressure Blood Pressure [Right Arm] 151/70 H Blood Pressure Mean Blood Pressure Mean [Right Arm] 97 Pulse Oximetry 96 Oxygen Delivery Method Room Air Sepsis Recent Fever Within 48 Hours Sepsis New/Unexplained Change in Mental Status Sepsis Action Taken by Nursing VITALS: Vitals are noted on the nurse's note and reviewed by myself. Vital signs stable. GENERAL: Pleasant female, in no acute distress, nondiaphoretic, well-developed well-nourished. SKIN: The skin was without rashes, erythema, edema, or bruising. There is no tenting of the skin. Capillary reflex less than 2 seconds. HEAD: Normocephalic atraumatic. EARS: External auditory canals clear, EYES: Pupils equal round and reactive to light and accommodation. Conjunctivae without injection, sclerae without icterus. Extraocular movements intact. NOSE: Patent, turbinates without inflammation or discharge. MOUTH: Mucous membranes moist. Pharynx without erythema or exudate. Uvula midline. Airway patent. Tongue does not deviate. NECK: Supple without nuchal rigidity. No lymphadenopathy. No thyromegaly. Cervical spine is nontender. No JVD. HEART: Regular rate and rhythm LUNGS: Clear to auscultation bilaterally without wheezes, rales or rhonchi. No retractions or accessory muscle use. ABDOMEN: Positive bowel sounds x 4. Normal tympanic percussion. Soft, tender right lower quadrant, without masses or organomegaly. Perez sign negative. No guarding or rebound tenderness. No CVA tenderness MUSCULOSKELETAL: No muscle atrophy, erythema, or edema noted. NEURO: Patient was alert and oriented to person place and time. Normal sensation to light and sharp touch. No focal neurological deficits. Course Administered Medications Discontinued Medications Sodium Chloride (Nss 1000ml) 1,000 mls @ 999 mls/hr IV .Q1H1M STA Stop: 03/18/21 01:06 Last Infusion: 03/18/21 01:52 Dose: 0 mls/hr Documented by: [id number] Admin: 03/18/21 00:40 Dose: 999 mls/hr Documented by: [id number] Acetaminophen (Ofirmev) 1,000 mg in 100 mls @ 400 mls/hr IV NOW STA Stop: 03/18/21 00:20 Last Infusion: 03/18/21 01:18 Dose: 0 mls/hr Documented by: [id number] Admin: 03/18/21 00:39 Dose: 400 mls/hr Documented by: [id number] Ceftriaxone Sodium (Rocephin) 2,000 mg in 70 mls @ 140 mls/hr IV NOW STA Stop: 03/18/21 01:50 Last Admin: 03/18/21 01:36 Dose: 140 mls/hr Documented by: [id number] Ioversol (Optiray 320 100ml) 90 ml IV ONCE ONE Stop: 03/18/21 00:50 Last Admin: 03/18/21 00:49 Dose: 90 ml Documented by: [id number] Medical Decision Making Medical Records Attestation: I reviewed the patient's medical records. Home Medications Current Medication List: was personally reviewed by me Laboratory Data Attestation: I reviewed the patient's lab results. Result diagrams: 03/17/21 22:39 03/17/21 22:39 Lab Results 03/17/21 03/17/21 03/18/21 Range/Units 22:39 22:39 Unknown WBC 9.36 (4.8-10.8) K/uL RBC 5.03 (4.2-5.4) M/uL Hgb 14.4 (12.0-16.0) g/dL Hct 44.2 (37-47) % MCV 87.9 (80-100) fL MCH 28.6 (25-34) pg MCHC 32.6 (32-36) g/dL RDW Std Deviation 44.3 (36.4-46.3) fL RDW Coeff of Briana 13.7 (11.5-14.5) % Plt Count 269 (130-400) K/uL MPV 9.5 (7.4-10.4) fL Immature Gran % (Auto) 0.1 % Neut % (Auto) 71.1 % Lymph % (Auto) 18.3 % [place] % (Auto) 7.5 % Eos % (Auto) 2.6 % Baso % (Auto) 0.4 % Neut # (Auto) 6.66 H (1.4-6.5) K/uL Lymph # (Auto) 1.71 (1.2-3.4) K/uL [place] # (Auto) 0.70 H (0.11-0.59) K/uL Eos # (Auto) 0.24 (0-0.5) K/uL Baso # (Auto) 0.04 (0-0.2) K/uL Immature Gran # (Auto) 0.01 (0.00-0.02) K/uL Sodium 138 (136-145) mmol/L Potassium 3.5 (3.5-5.1) mmol/L Chloride 107 (98-107) mmol/L Carbon Dioxide 27 (21-32) mmol/L Anion Gap 4.0 (3-11) BUN 22 H (7-18) mg/dl Creatinine 0.96 (0.6-1.2) mg/dl Est Cr Clr Drug Dosing 70.5 ml/min Est GFR ( Amer) 74.0 ml/min Est GFR (Non-Af Amer) 63.8 ml/min BUN/Creatinine Ratio 22.6 H (10-20) Glucose 93 (70-99) mg/dl Calcium 8.9 (8.5-10.1) mg/dl Total Bilirubin 0.6 (0.2-1) mg/dl AST 16 (15-37) U/L ALT 19 (12-78) U/L Alkaline Phosphatase 78 (45-117) U/L Total Protein 7.1 (6.4-8.2) gm/dl Albumin 3.6 (3.4-5.0) gm/dl Globulin 3.5 (2.5-4.0) gm/dl Albumin/Globulin Ratio 1.0 (0.9-2) Lipase 105 (73-393) U/L Urine Color Yellow Urine Appearance Clear (Clear) Urine pH 6.0 (4.5-7.5) Ur Specific [place] 1.007 (1.000-1.030) Urine Protein Negative (Negative) Urine Glucose (UA) Negative (Negative) Urine Ketones Negative (Negative) Urine Blood 2+ H (Negative) Urine Nitrite Negative (Negative) Urine Bilirubin Negative (Negative) Urine Urobilinogen Negative (Negative) Ur Leukocyte Esterase 3+ H (Negative) Urine WBC (Auto) >30 H (0-5) /hpf Urine RBC (Auto) 5-10 H (0-4) /hpf U Hyaline Cast (Auto) 1-5 (0-5) /lpf U Epithel Cells (Auto) 10-20 H (0-5) /lpf Urine Bacteria (Auto) Negative (Negative) Imaging Data Attestation: I personally reviewed and interpreted this imaging study as follows: MDM Narrative Prior records/ancillary studies reviewed. Triage Nursing notes reviewed. Additional history obtained from nursing. The patient's history was concerning for abdominal pain. Differential diagnosis: Etiologies such as appendicitis, diverticulitis, PUD, biliary pathology, UTI, pancreatitis, obstruction, mesenteric ischemia, aortic pathology, infections, inflammatory bowel disease, renal colic, as well as others were entertained. Physical examination findings: As above. ER treatment provided: An order was placed for continuous cardiac monitoring. The monitor shows a rate of 60-100 with a sinus rhythm. IV fluids, Rocephin, Flomax On reassessment the patient felt better. Diagnostics interpreted by me: The labs revealed no leukocytosis, urine concerning for infection and sent for culture; no prior urine culture for review Imaging studies: Preliminary Findings Only See Final Report For Complete Findings CT ABDOMEN & PELVIS With Contrast: Obstructing 7.6 mm right UVJ stone causing mild upstream hydroureteronephrosis. Hepatic cysts. Gallbladder, spleen, pancreas, adrenal glands are unremarkable. Left kidney and collecting system are normal. Normal appendix. No bowel obstruction or inflammation. Fibroid uterus. Normal urinary bladder. Small fat-containing umbilical hernia. No acute osseous findings. Radiologist: Claudia Leavitt M.D. Consultation: A consultation was placed with the hospitalist. The case was discussed and diagnostics were reviewed. The patient was evaluated in the ER for further treatment. Exam and history seem consistent with infected stone. Patient started antibiotics. Medicine was consulted. She will be admitted. By the evaluation outlined above emergent etiologies such as appendicitis, diverticulitis, PUD, biliary pathology, pancreatitis, obstruction, mesenteric ischemia, aortic pathology, inflammatory bowel disease, as well as others were deemed relatively unlikely. The pt informed about the findings as listed above. All questions were answered and pleased with the treatment. The chart was completed utilizing [employer] Speech voice recognition software. Grammatical errors, random word insertions, pronoun errors, and incomplete sentences are an occassional consequence of this system due to software limitations, ambient noise, and hardware issues. Any formal questions or concerns about the content, text, or information contained within the body of this dictation should be directly addressed to the physician assistant front office manager for clarification. Impression & Plan Renal colic on right side, UTI (urinary tract infection) Discharge Plan Visit Data Chief Complaint: Abdominal Pain Stated Complaint: PAIN IN LOWER RIGHT ABDOMEN AND BACK ED Provider: Tatum Hernandez ED Midlevel Provider: Stacey Saini Discharge Problem: Renal colic on right side, UTI (urinary tract infection) Patient Disposition: Admitted As Inpatient Condition: Good Forms Stand Alone Forms: [employer] Prescriptions Prescriptions: No Action Zyrtec 10 mg capsule 10 mg PO HS Qty: 90 RF: 3 montelukast 10 mg tablet 10 mg PO HS Qty: 90 RF: 3 budesonide-formoterol [Symbicort] 160-4.5 mcg/actuation HFA aerosol inhaler 2 puff INH BID Qty: 3 RF: 3 levothyroxine 100 mcg Capsule 100 mcg PO QAM RF: 0 simvastatin 40 mg Tablet 40 mg PO HS RF: 0 chlorthalidone 25 mg tablet 25 mg PO Q OTHER DAY RF: 0 naproxen sodium [Aleve] 220 mg Tablet 220 mg PO Q8H PRN (Reason: Pain) RF: 0 omeprazole 20 mg capsule,delayed release(DR/EC) 20 mg PO QAM RF: 0 albuterol sulfate 90 mcg/actuation HFA aerosol inhaler 2 puff inhalation Q4 PRN (Reason: Asthma) RF: 0 Referrals Referrals: Nawaf Vázquez MD [Primary Care Provider] -
[2021-03-18] MEDS ORDERED: cefTRIAXone SODIUM 2,000 MG/70 ML BAG IV STA (01:21)
[2021-03-18] MEDS ORDERED: TAMSULOSIN HCL 0.4 MG CAP PO ONE (01:52)
--- NOTE | 2021-03-18 02:09 | Urology Consultation ---
Date of Consultation March 18, 2021 Assessment & Plan (1) Renal colic on right side: Case was discussed with the treating clinician emergency department is felt that due to the obstructing nature of the stone as well as urinary tract infection noted on urinalysis admission is warranted. The hospitalist have been contacted for admission. We recommend proceeding as follows: Provide analgesics Provide antiemetics Antibiotics have been initiated in the form of Rocephin. This should continue and antibiotics can be tailored based on pending urine culture results. Flomax has been initiated for kidney stone expulsion properties this should continue Provide hydration with IV fluids Would recommend keeping the patient n.p.o. for the present time. Will reassess her in the morning to determine if she will require any cystoscopic intervention or if conservative measures should be continued. Further recommendations will be based on her clinical course as it unfolds. History of Present Illness Reason for Consultation: Nephrolithiasis History of Present Illness This is a 60-year-old female who presented to the emergency department secondary to 4 days of right flank and right abdominal pain. Patient says that the pain began approximate 4 days ago stated previously and was described as a pressure in the front of her abdomen with some radiation to her right flank. Over the ensuing 4 days she said that the pain would come and go and today got to the point where the pain was unbearable prompting her visit to the emergency department. She has never had this problem before. She denies any fevers, shakes, chills. She denies any dysuria, urinary frequency, or hematuria. She denies any nausea or vomiting. Patient notes that she was told in the past she had kidney stones but never required any intervention for them. In the emergency department the patient did have labs and imaging which I independently reviewed. CBC revealed her white blood cell count, hemoglobin, hematocrit, and platelet count are all within normal range. Chemistry profile showed her sodium, potassium, and creatinine were all within normal range. Urinalysis revealed 2+ blood. This study also showed 3+ leukocyte esterase and greater than 30 white blood cells per high-power field. There is no bacteria noted. Covid test was performed and is pending. A CT scan of the abdomen and pelvis showed an obstructing 7.6 mm kidney stone at the right ureterovesical junction causing hydroureteronephrosis. At the time my interview the patient is resting comfortably in bed. Her pain was resolved at the time of my exam and she was in no distress. Allergies Allergy/AdvReac Type Severity Reaction Status Date / Time carbamazepine [From Tegretol] Allergy Intermediate Hives Verified 03/18/21 00:54 divalproex sodium Allergy Intermediate Hives Verified 03/18/21 00:54 [From Depakote] phenytoin [From Dilantin] Allergy Intermediate Hives Verified 03/18/21 00:54 Home Medications Medication Instructions Recorded Confirmed Type levothyroxine 100 mcg capsule 100 mcg PO QAM 03/20/18 03/18/21 History simvastatin 40 mg tablet 40 mg PO HS 03/20/18 03/18/21 History chlorthalidone 25 mg tablet 25 mg PO Q OTHER DAY 03/30/20 03/18/21 History naproxen sodium 220 mg tablet 220 mg PO Q8H PRN 06/15/20 03/18/21 History (Aleve) omeprazole 20 mg capsule,delayed 20 mg PO QAM 06/15/20 03/18/21 History release cetirizine 10 mg capsule (Zyrtec) 10 mg PO HS #90 cap 07/14/20 03/18/21 Rx montelukast 10 mg tablet 10 mg PO HS #90 tab 01/05/21 03/18/21 Rx budesonide-formoterol HFA 160 2 puff INH BID #3 inhaler 02/02/21 03/18/21 Rx mcg-4.5 mcg/actuation aerosol inhaler (Symbicort) albuterol sulfate 90 mcg/actuation 2 puff INHALATION Q4 PRN 03/18/21 03/18/21 History aerosol inhaler Patient History Medical History Arthritis of left knee Asthma Cataract and glaucoma syndrome Chronic back pain Congenital anomaly of cerebrovascular system Gall stone Hyperlipidemia Hypertension Hypothyroidism Kidney stones MCL sprain of left knee Migraine Osteoarthritis Rheumatoid arthritis Right knee DJD Seizure Surgical History History of arthroscopy History of laparoscopy Family History Brother Deep vein thrombosis Grandfather (Maternal) Deep vein thrombosis Grandfather (Paternal) Deep vein thrombosis Other Cancer Diabetes Hypertension Stroke Social History Smoking Status: Never smoker Hx Alcohol Use: Yes Alcohol type: wine Hx Substance Use: No Preferred Language: Eritrean Communication Ability: Effective Detention Attendant Required: No Beliefs That Will Affect Care: None marital status: / Current Living Situation: Alone Feels Safe at Home: Yes Assistive Devices: Glasses Review of Systems Constitutional: no fever and no chills Eyes: no diplopia Ear, Nose, Mouth, Throat: no ear pain and no sore throat Respiratory: no cough and no dyspnea Cardiovascular: no chest pain Gastrointestinal: + abdominal pain (Right sided); no nausea and no vomiting Genitourinary: no dysuria, no urinary frequency, no urinary urgency and no hematuria Musculoskeletal: + back pain (Right flank) Integumentary: no rash Neurologic: no localized weakness Physical Exam Constitutional: well developed and well nourished; no acute distress Eyes: no conjunctival abnormality ENMT: Ears: no hearing impairment and no external ear abnormality Neck: trachea midline Respiratory: normal respiratory effort; no respiratory distress and no labored breathing Cardiovascular: Rate/Rhythm: regular rate and regular rhythm Vessels: dorsalis pedis pulses present and radial pulses present Gastrointestinal (Abdomen): Abdomen is soft and nondistended. There is no pain with palpation. Musculoskeletal: No gross orthopedic abnormalities. No calf tenderness. Skin: no rashes Neurologic: moves all extremities Psychiatric: A+Ox3, euthymic affect Genitourinary: no CVA tenderness Results & Data ([facility]) Vital Signs (Past 12 Hours) Vital Signs Temp Pulse Pulse Resp BP BP Pulse Ox 03/18/21 01:42 71 18 151/70 H 96 03/18/21 00:43 65 18 98 03/18/21 00:42 63 18 156/78 H 96 03/17/21 22:35 36.4 C L 77 18 191/92 H 97 PG Care Time/CCT Total # of Minutes Spent Total Time Spent with Patient: Total time spent is greater than 50% in coordination of care (as documented) at patient's floor/unit and/or counseling patient: Coding Level of Care Code 06219 Inpt Consult Level 5 Diagnoses Renal colic on right side N23
--- NOTE | 2021-03-18 02:28 | History & Physical Report ---
Date of Service March 18, 2021 Assessment & Plan (1) Right distal ureteral calculus: Plan: 7.6 mm right UVJ obstructing stone/mild hydroureteronephrosis- NPO Follow urine culture and sensitivity Ceftriaxone 2 g IV every 24 hours Zofran 4 mg IV every 6 hours as needed Tamsulosin 0.4 mg given in ED, and continue at bedtime Acetaminophen 650 mg p.o. every 6 hours as needed mild pain or fever [place] 5/325, 1 p.o. every 6 hours as needed moderate pain [place] 5/325, 2 p.o. every 6 hours as needed severe pain Dilaudid 0.25 mg IV every 3 hours as needed moderate pain Dilaudid 0.5 mg IV every 3 hours as needed severe pain Urology consult (2) Hydronephrosis, right: Plan: See above (3) Hydroureter on right: Plan: See above (4) Asthma: Plan: Continue Symbicort (5) Hyperlipidemia: Plan: Hold simvastatin until taking p.o. (6) Hypothyroidism: Plan: Hold levothyroxine until after procedure (7) GERD (gastroesophageal reflux disease): Plan: Hold omeprazole Famotidine 20 mg IV every 12 hours History of Present Illness Chief Complaint: The patient presents to the emergency department with progressively worsening right flank and right lower quadrant pain over the past 2 days. Primary Care Provider: Eleanor Vázquez MD The patient is a 60-year-old female with past medical history including hypertension, right knee DJD, left knee DJD, hypothyroidism, hyperlipidemia, migraine, allergic dermatitis, allergic rhinitis, asthma and seizure disorder. She presents to the emergency department with persistent and worsening right flank and right lower quadrant pain over the past 2 days. Work-up in the emergency department included a CT scan of abdomen pelvis which showed a 7.6 mm right UVJ obstructing stone causing mild hydroureteronephrosis. Allergies Allergy/AdvReac Type Severity Reaction Status Date / Time carbamazepine [From Tegretol] Allergy Intermediate Hives Verified 03/18/21 00:54 divalproex sodium Allergy Intermediate Hives Verified 03/18/21 00:54 [From Depakote] phenytoin [From Dilantin] Allergy Intermediate Hives Verified 03/18/21 00:54 Home Medications Medication Instructions Recorded Confirmed Type levothyroxine 100 mcg capsule 100 mcg PO QAM 03/20/18 03/18/21 History simvastatin 40 mg tablet 40 mg PO HS 03/20/18 03/18/21 History chlorthalidone 25 mg tablet 25 mg PO Q OTHER DAY 03/30/20 03/18/21 History naproxen sodium 220 mg tablet 220 mg PO Q8H PRN 06/15/20 03/18/21 History (Aleve) omeprazole 20 mg capsule,delayed 20 mg PO QAM 06/15/20 03/18/21 History release cetirizine 10 mg capsule (Zyrtec) 10 mg PO HS #90 cap 07/14/20 03/18/21 Rx montelukast 10 mg tablet 10 mg PO HS #90 tab 01/05/21 03/18/21 Rx budesonide-formoterol HFA 160 2 puff INH BID #3 inhaler 02/02/21 03/18/21 Rx mcg-4.5 mcg/actuation aerosol inhaler (Symbicort) albuterol sulfate 90 mcg/actuation 2 puff INHALATION Q4 PRN 03/18/21 03/18/21 History aerosol inhaler Past Med/Surg History Medical History (Updated 03/18/21 @ 02:37 by Markus Ramos MD) Arthritis of left knee Asthma Cataract and glaucoma syndrome Chronic back pain Congenital anomaly of cerebrovascular system Gall stone GERD (gastroesophageal reflux disease) Hyperlipidemia Hypertension Hypothyroidism Kidney stones MCL sprain of left knee Migraine Osteoarthritis Rheumatoid arthritis Right knee DJD Seizure Surgical History History of arthroscopy History of laparoscopy Family History Brother Deep vein thrombosis Grandfather (Maternal) Deep vein thrombosis Grandfather (Paternal) Deep vein thrombosis Other Cancer Diabetes Hypertension Stroke Social History Smoking Status: Never smoker Hx Alcohol Use: Yes Alcohol type: wine Hx Substance Use: No Preferred Language: Thai Communication Ability: Effective Revenue Coordinator Required: No Beliefs That Will Affect Care: None marital status: / Current Living Situation: Alone Feels Safe at Home: Yes Assistive Devices: Glasses Review of Systems Review of Systems: The patient denies chest pain, palpitations, shortness of breath, dyspnea on exertion, cough, lower extremity swelling, sore throat, fevers, chills, sweats, fatigue, nausea, vomiting, diarrhea , constipation, blood in urine or stool, dysuria, urinary frequency or urgency, lightheadedness, dizziness, headache, memory loss, loss of consciousness, rash, abnormal bruising or bleeding, imbalance, focal or generalized weakness, numbness or tingling in arms or legs, generalized arthralgias or myalgias, neck pain, or night sweats. The review of systems is otherwise negative other than for that already noted above, and at least 10 systems have been reviewed. Physical Exam Physical Exam: The patient is awake, alert and oriented 3, well developed and well nourished, normocephalic and atraumatic, lying in bed and in no acute distress. HEENT--PERRL, EOMI, mucous membranes and oropharynx normal. Neck--supple. No JVD. No bruits. Thyroid normal, trachea midline, no adenopathy. Heart--normal S1 and S2. No murmurs, rubs or gallops. Lungs--clear bilaterally, no respiratory distress, no accessory muscle use. Abdomen--normal bowel sounds and soft. Nontender. Nondistended. Mildly obese Extremities--no cyanosis or clubbing. No edema. Dermatologic--normal skin turgor, normal color, no abnormal lymph nodes, no rash. Neurologic--cranial nerves II through XII grossly intact. Rheumatologic--normal range of motion. Psychiatric--normal affect. Results & Data Results & Data ([facility]) Vital Signs (Past 12 Hours) Vital Signs Temp Pulse Pulse Resp BP BP Pulse Ox 03/18/21 01:42 71 18 151/70 H 96 03/18/21 00:43 65 18 98 03/18/21 00:42 63 18 156/78 H 96 03/17/21 22:35 97.5 F L 77 18 191/92 H 97 Laboratory Results Laboratory Results WBC 9.36 K/uL (4.8-10.8) 03/17/21 22:39 RBC 5.03 M/uL (4.2-5.4) 03/17/21 22:39 Hgb 14.4 g/dL (12.0-16.0) 03/17/21 22:39 Hct 44.2 % (37-47) 03/17/21 22:39 MCV 87.9 fL (80-100) 03/17/21 22:39 MCH 28.6 pg (25-34) 03/17/21 22:39 MCHC 32.6 g/dL (32-36) 03/17/21 22:39 RDW Std Deviation 44.3 fL (36.4-46.3) 03/17/21 22:39 RDW Coeff of Briana 13.7 % (11.5-14.5) 03/17/21 22:39 Plt Count 269 K/uL (130-400) 03/17/21 22:39 MPV 9.5 fL (7.4-10.4) 03/17/21 22:39 Immature Gran % (Auto) 0.1 % 03/17/21 22:39 Neut % (Auto) 71.1 % 03/17/21 22:39 Lymph % (Auto) 18.3 % 03/17/21 22:39 [place] % (Auto) 7.5 % 03/17/21 22:39 Eos % (Auto) 2.6 % 03/17/21 22:39 Baso % (Auto) 0.4 % 03/17/21 22:39 Neut # (Auto) 6.66 K/uL (1.4-6.5) H 03/17/21 22:39 Lymph # (Auto) 1.71 K/uL (1.2-3.4) 03/17/21 22:39 [place] # (Auto) 0.70 K/uL (0.11-0.59) H 03/17/21 22:39 Eos # (Auto) 0.24 K/uL (0-0.5) 03/17/21 22:39 Baso # (Auto) 0.04 K/uL (0-0.2) 03/17/21 22:39 Immature Gran # (Auto) 0.01 K/uL (0.00-0.02) 03/17/21 22:39 Sodium 138 mmol/L (136-145) 03/17/21 22:39 Potassium 3.5 mmol/L (3.5-5.1) 03/17/21 22:39 Chloride 107 mmol/L (98-107) 03/17/21 22:39 Carbon Dioxide 27 mmol/L (21-32) 03/17/21 22:39 Anion Gap 4.0 (3-11) 03/17/21 22:39 BUN 22 mg/dl (7-18) H 03/17/21 22:39 Creatinine 0.96 mg/dl (0.6-1.2) 03/17/21 22:39 Est Cr Clr Drug Dosing 70.5 ml/min 03/17/21 22:39 Est GFR ( Amer) 74.0 ml/min 03/17/21 22:39 Est GFR (Non-Af Amer) 63.8 ml/min 03/17/21 22:39 BUN/Creatinine Ratio 22.6 (10-20) H 03/17/21 22:39 Glucose 93 mg/dl (70-99) 03/17/21 22:39 Calcium 8.9 mg/dl (8.5-10.1) 03/17/21 22:39 Total Bilirubin 0.6 mg/dl (0.2-1) 03/17/21 22:39 AST 16 U/L (15-37) 03/17/21 22:39 ALT 19 U/L (12-78) 03/17/21 22:39 Alkaline Phosphatase 78 U/L (45-117) 03/17/21 22:39 Total Protein 7.1 gm/dl (6.4-8.2) 03/17/21 22:39 Albumin 3.6 gm/dl (3.4-5.0) 03/17/21 22:39 Globulin 3.5 gm/dl (2.5-4.0) 03/17/21 22:39 Albumin/Globulin Ratio 1.0 (0.9-2) 03/17/21 22:39 Lipase 105 U/L (73-393) 03/17/21 22:39 Urine Color Yellow 03/18/21 Unknown Urine Appearance Clear (Clear) 03/18/21 Unknown Urine pH 6.0 (4.5-7.5) 03/18/21 Unknown Ur Specific [place] 1.007 (1.000-1.030) 03/18/21 Unknown Urine Protein Negative (Negative) 03/18/21 Unknown Urine Glucose (UA) Negative (Negative) 03/18/21 Unknown Urine Ketones Negative (Negative) 03/18/21 Unknown Urine Blood 2+ (Negative) H 03/18/21 Unknown Urine Nitrite Negative (Negative) 03/18/21 Unknown Urine Bilirubin Negative (Negative) 03/18/21 Unknown Urine Urobilinogen Negative (Negative) 03/18/21 Unknown Ur Leukocyte Esterase 3+ (Negative) H 03/18/21 Unknown Urine WBC (Auto) >30 /hpf (0-5) H 03/18/21 Unknown Urine RBC (Auto) 5-10 /hpf (0-4) H 03/18/21 Unknown U Hyaline Cast (Auto) 1-5 /lpf (0-5) 03/18/21 Unknown U Epithel Cells (Auto) 10-20 /lpf (0-5) H 03/18/21 Unknown Urine Bacteria (Auto) Negative (Negative) 03/18/21 Unknown Diagnostic Findings [facility] Patient: KENN AGUILAR (Female) : 58 Status: ER Date: 03/18/21 01:32 Room #: History: R FLANK AND R SIDED ABD PAIN Slices: [id number] Priors: Tech: Hal Pittman @ [id number] Exams: CT ABDOMEN & PELVIS With Contrast Contrast: IV Amt: 90 Accession Numbers: [id number] Referring Physician: ELEANOR VÁZQUEZ Preliminary Findings Only See Final Report For Complete Findings CT ABDOMEN & PELVIS With Contrast: Obstructing 7.6 mm right UVJ stone causing mild upstream hydroureteronephrosis. Hepatic cysts. Gallbladder, spleen, pancreas, adrenal glands are unremarkable. Left kidney and collecting system are normal. Normal appendix. No bowel obstruction or inflammation. Fibroid uterus. Normal urinary bladder. Small fat-containing umbilical hernia. No acute osseous findings. Radiologist: Claudia Leavitt M.D. Study ready at 01:35 and initial results transmitted at 01:44 *This report constitutes a preliminary interpretation only. Non-acute findings felt to be unrelated to the clinical presentation may not be discussed in this report. The study will be interpreted and a final report will be generated by the local Radiologist the following shift. To reach the hospital radiology department call [phone]. If a discrepancy is found between the preliminary and final interpretations of this study, please notify us via our Client Portal at [email or web address] can also fax this report with a description of the discrepancy, or include the final report, to our daytime fax number [phone].If faxing, please indicate the severity of discrepancy using one of the following categories: [ ] 1 - Agree/Informational [ ] 2 - Unlikely to Affect Management [ ] 3 - Possible Eventual Change of Management [ ] 4 - Probable Immediate Change of Management For all other patient related information, please fax us at [phone]. [id number] Code Status & VTE Plan Code Status Full code VTE Prophylaxis Plan VTE Prophylaxis will be ordered: Yes PG Care Time/CCT Total # of Minutes Spent Total Time Spent with Patient: Total time spent is greater than 50% in coordination of care (as documented) at patient's floor/unit and/or counseling patient: Coding Level of Care Code 59905 Initial Inpt Care Lvl 3 Diagnoses Right distal ureteral calculus N20.1 Hydronephrosis, right N13.30 Hydroureter on right N13.4 Asthma J45.909 Hyperlipidemia E78.5 Hypothyroidism E03.9 GERD (gastroesophageal reflux disease) K21.9
[2021-03-18] MEDS: FAMOTIDINE 20 MG in SYRINGE 3 ML IV SCH ×2 (03:02→16:09)
[2021-03-18] MEDS ORDERED: HYDROmorphone INJ 0.5 MG/0.5 ML SYR IV PRN ×2 (05:11)
[2021-03-18] MEDS ORDERED: HYDROCODONE/ACETAMOPHEN 5/325MG TAB PO PRN ×2 (05:11)
[2021-03-18] MEDS ORDERED: ONDANSETRON INJ 2 MG/ML 2 ML VIAL IV PRN ×2 (05:11→11:30)
[2021-03-18] MEDS ORDERED: ACETAMINOPHEN 325 MG TAB PO PRN (05:11)
[2021-03-18] MEDS ORDERED: NSS + 20MEQ KCL 20 MEQ/1,000 ML BAG IV SCH (05:45)
--- NOTE | 2021-03-18 08:19 | Urology Progress Note ---
Date of Service March 18, 2021 Assessment & Plan (1) Right distal ureteral calculus: (2) Hydronephrosis, right: Plan: 60 yo F admitted for right renal colic secondary to an obstructing right UVJ stone with hydroureteronephrosis. - Plan of care reviewed with Dr. Magallon, urologist publications editor - Pt afebrile, nontoxic, creatinine and WBC WNL on admission, no new labs at time of exam - Urine culture pending - continue IV Ceftriaxone per primary service, follow cultures - Discussed surgical intervention with cystoscopy and right ureteral stent placement acutely given concern for obstructing stone and infection - Discussed that stone will need to be treated in the future - Findings reviewed with Dr. Magallon. - Given her hydroureteronephrosis and concern for infection in the context of an obstructing right ureteral stone, will proceed with OR for cystoscopy, Right retrograde pyelogram and Right stent placement - Risks and benefits to be reviewed with patient by Dr. Magallon. OR notified. Preoperative CXR and EKG ordered. COVID-19 testing negative. - Will cover with scheduled IV Ceftriaxone preoperatively - She is agreeable with above plan, all questions answered - Keep NPO for procedure - Strain urine - Continue supportive care and management per primary service Admission and Anticipated Discharge Date Admission Date: March 18, 2021 Supervising Physician Co-Signing Physician Notes Discussed patient with SATISH. Agree with plan. Will plan for cystoscopy with right stent placement due to positive UA. Patient currently stable so will add on to OR, first available. Will need stone treatment in future, will not treat stone at this current time due to risk of infection. Subjective Patient awake and resting in bed. No acute issues overnight. Currently comfortable, denies flank or abdominal pain at present. Voiding spontaneously without difficulty. No dysuria or hematuria. No nausea or vomiting. No fever or chills. No chest pain or shortness of breath. She is NPO since midnight. Review of Systems Constitutional: as per Subjective / HPI Respiratory: as per Subjective / HPI Cardiovascular: as per Subjective / HPI Gastrointestinal: as per Subjective / HPI Genitourinary: as per Subjective / HPI Physical Exam Constitutional: well developed and well nourished; no acute distress and not ill appearing Respiratory: normal respiratory effort and able to speak in complete sentences; no respiratory distress and no labored breathing Cardiovascular: Extremities: no pedal edema Gastrointestinal (Abdomen): Inspection/Auscultation: abdomen normal to inspection; abdomen not distended Percussion/Palpation: abdomen soft; abdomen nontender and no guarding Musculoskeletal: Head/Neck/Chest: normocephalic and head atraumatic Extremities: extremities normal to inspection Skin: no rashes, warm and dry Neurologic: moves all extremities and awake Psychiatric: Orientation: alert and oriented x 3 Genitourinary: no CVA tenderness Results & Data ([facility]) Vital Signs (Past 12 Hours) Vital Signs Temp Pulse Pulse Resp BP BP Pulse Ox 03/18/21 07:43 36.6 C 73 16 106/52 L 95 03/18/21 05:00 36.7 C 73 18 134/84 93 03/18/21 04:18 62 18 135/75 94 03/18/21 02:00 61 18 147/84 H 98 03/18/21 01:42 71 18 151/70 H 96 03/18/21 00:43 65 18 98 03/18/21 00:42 63 18 156/78 H 96 03/17/21 22:35 36.4 C L 77 18 191/92 H 97 PG Care Time/CCT Total # of Minutes Spent Total Time Spent with Patient: Total time spent is greater than 50% in coordination of care (as documented) at patient's floor/unit and/or counseling patient: Coding Level of Care Code 38930 Subseq Hosp Care Lvl 2 Diagnoses Right distal ureteral calculus N20.1 Hydronephrosis, right N13.30
--- NOTE | 2021-03-18 08:20 | CT Scan Report ---
CT abd pelvis IV con only CLINICAL INDICATION: [place] ^C5 LABS ^rlq pain/flank pain. TECHNIQUE: Helical axial images of the abdomen and pelvis were obtained and displayed at 5 and 1 mm i ntervals. Automated dose lowering techniques and/or adjustment according to patient size were utilize d for this exam. This exam was performed with intravenous contrast. COMPARISON: Comparison is made to CT abdomen and pelvis 10/05/2016 FINDINGS: Lower chest: No acute abnormality Liver: Subcentimeter hypodensities are seen likely representing cysts but too small to characterize. Gallbladder and biliary tree: Cholelithiasis is seen without evidence of cholecystitis. No intra- or extrahepatic biliary ductal dilation. Pancreas: Unremarkable, no focal lesions. Spleen: Unremarkable. Adrenals: Unremarkable. Kidneys and ureters: There is mild left hydronephrosis and distal distention of the ureter. A [address] one is in the right ureterovesicular junction. Nonobstructive stones are seen on the left. Bladder: Unremarkable. Bowel: Diverticulosis is seen without evidence of diverticulitis. A hiatal hernia is seen. Lymph nodes Retroperitoneal: Unremarkable. Mesenteric: Unremarkable. Pelvic: Unremarkable. Reproductive organs: Multiple calcified fibroids are seen. Peritoneum: Old epiploic appendagitis focus is seen in the left lower quadrant. Vessels: Atherosclerotic calcifications are seen. Abdominal wall: Unremarkable. Bones: Degenerative changes in the visualized spine. IMPRESSION: Obstructive right UVJ stone with proximal hydroureteronephrosis. Nonobstructing nephrolithiasis. ACT 112: Negative or not required by law. Electronically signed by: Eric Sandhu M.D. 03/18/2021 8:19 AM
[2021-03-18] MEDS ORDERED: FLUTICASONE/VILANTEROL 200/25MCG 14 PUFFS/INHALER INH SCH (09:00)
--- NOTE | 2021-03-18 10:11 | XRay Report ---
XR chest 1V portable CLINICAL HISTORY: Preoperative evaluation.Ureteral stone. COMPARISON STUDY: Chest radiograph March 30, 2020. FINDINGS: Lung volumes are normal. Lungs are clear. There is no pneumothorax or pleural effusion. Car diac size is normal. Mediastinal contours are normal. There is no evidence for pulmonary edema. IMPRESSION: No acute cardiopulmonary findings. ACT 112: Negative or not required by law. Electronically signed by: Michael Medrano M.D. 03/18/2021 10:10 AM
--- NOTE | 2021-03-18 11:05 | History & Physical Bridge Note ---
Date of Service March 18, 2021 History & Physical Bridge Note I have examined the patient, reviewed the History & Physical and in the interval since the performance of the History & Physical I have noted the following changes of clinical significance: no changes noted Supervising Physician Co-Signing Physician Notes Discussed patient with SATISH. Agree with plan. Will plan for cystoscopy with right stent placement due to positive UA. Patient currently stable so will add on to OR, first available. Will need stone treatment in future, will not treat stone at this current time due to risk of infection.
--- NOTE | 2021-03-18 11:07 | Anesthesiology Consultation ---
Date of Service March 18, 2021 Assessment & Plan (1) Encounter for pre-operative examination: Chart Review Chart Review: Acceptable Risk for Surgery and Patient NOT seen in Pre Admission Testing covid neg 03/18/21 noseizures in 8 years. has beenweaned off of her antiseizure meds. Consults Requested none History Surgery Operation Date: 03/18/21 10:10 Proposed Procedures p Cystoscopy, Right Ureteral Stent Placement - Cuong Magallon MD Height/Weight Height: 5 ft 7 in Weight: 88 kg Allergies Allergy/AdvReac Type Severity Reaction Status Date / Time carbamazepine [From Tegretol] Allergy Intermediate Hives Verified 03/18/21 00:54 divalproex sodium Allergy Intermediate Hives Verified 03/18/21 00:54 [From Depakote] phenytoin [From Dilantin] Allergy Intermediate Hives Verified 03/18/21 00:54 Medications Home Medications Medication Instructions Recorded Confirmed Last Taken levothyroxine 100 mcg capsule 100 mcg PO QAM 03/20/18 03/18/21 03/17/21 simvastatin 40 mg tablet 40 mg PO HS 03/20/18 03/18/21 03/16/21 chlorthalidone 25 mg tablet 25 mg PO Q OTHER DAY 03/30/20 03/18/21 03/17/21 naproxen sodium 220 mg tablet 220 mg PO Q8H PRN 06/15/20 03/18/21 06/15/20 07:30 (Aleve) 660 mg omeprazole 20 mg capsule,delayed 20 mg PO QAM 06/15/20 03/18/21 03/17/21 release cetirizine 10 mg capsule (Zyrtec) 10 mg PO HS #90 cap 07/14/20 03/18/21 03/16/21 montelukast 10 mg tablet 10 mg PO HS #90 tab 01/05/21 03/18/21 03/16/21 budesonide-formoterol HFA 160 2 puff INH BID #3 inhaler 02/02/21 03/18/21 03/17/21 mcg-4.5 mcg/actuation aerosol inhaler (Symbicort) albuterol sulfate 90 mcg/actuation 2 puff INHALATION Q4 PRN 03/18/21 03/18/21 Unknown aerosol inhaler Active Medications Generic Name Dose Route Start Last Admin Trade Name Freq PRN Reason Stop Dose Admin Fluticasone/Vilanterol 1 puffs 03/18/21 09:00 03/18/21 05:43 Fluticasone/Vilanterol 200/25mcg 14 Puffs/Inhaler INH 04/17/21 08:59 1 puffs DAILY TRACY Administration Protocol Famotidine 20 mg/ Syringe 5 mls @ 2.5 mls/min 03/18/21 03:00 03/18/21 03:02 IV 04/17/21 02:59 2.5 mls/min Q12H TRACY Administration Potassium Chloride/Sodium Chloride 20 meq in 1,000 mls @ 80 mls/hr 03/18/21 05:45 03/18/21 11:10 Normal Saline W/20 Meq Kcl IV 04/17/21 05:44 0 mls/hr .[id number] TRACY Titration NPO Date Last Intake of Fluids: 03/17/21 Time Last Intake of Fluids: 23:59 Date Last Intake of Solids: 03/17/21 Time Last Intake of Solids: 23:59 Past Medical History Medical History Arthritis of left knee Asthma Cataract and glaucoma syndrome Chronic back pain Congenital anomaly of cerebrovascular system Gall stone GERD (gastroesophageal reflux disease) Hyperlipidemia Hypertension Hypothyroidism Kidney stones MCL sprain of left knee Migraine Osteoarthritis Rheumatoid arthritis Right knee DJD Seizure Exercise / Class Metabolic Activity II 4-5 Yardwork/Stairs/Walk up hill Past Family History Family History Brother Deep vein thrombosis Grandfather (Maternal) Deep vein thrombosis Grandfather (Paternal) Deep vein thrombosis Other Cancer Diabetes Hypertension Stroke Past Surgical History Surgical History History of arthroscopy History of laparoscopy Social History Smoking Status: Former smoker Hx Alcohol Use: Yes Alcohol type: wine alcohol intake frequency: holidays/special occasions only Hx Substance Use: No Physical Exam Vital Signs Last Vital Signs Temp 36.6 C 03/18/21 07:43 Pulse 73 03/18/21 07:43 Resp 16 03/18/21 07:43 BP 106/52 L 03/18/21 07:43 Pulse Ox 95 03/18/21 07:43 Testing Laboratory Results 03/17/21 22:39 03/17/21 22:39 Urine Color Yellow 03/18/21 Unknown Urine Appearance Clear (Clear) 03/18/21 Unknown Urine pH 6.0 (4.5-7.5) 03/18/21 Unknown Ur Specific [place] 1.007 (1.000-1.030) 03/18/21 Unknown Urine Protein Negative (Negative) 03/18/21 Unknown Urine Glucose (UA) Negative (Negative) 03/18/21 Unknown Urine Ketones Negative (Negative) 03/18/21 Unknown Urine Nitrite Negative (Negative) 03/18/21 Unknown Ur Leukocyte Esterase 3+ (Negative) H 03/18/21 Unknown Urine WBC (Auto) >30 /hpf (0-5) H 03/18/21 Unknown Urine RBC (Auto) 5-10 /hpf (0-4) H 03/18/21 Unknown U Hyaline Cast (Auto) 1-5 /lpf (0-5) 03/18/21 Unknown U Epithel Cells (Auto) 10-20 /lpf (0-5) H 03/18/21 Unknown Urine Bacteria (Auto) Negative (Negative) 03/18/21 Unknown Electrocardiogram Date: 03/18/21 Normal sinus rhythm Minimal voltage criteria for LVH, may be normal variant Cannot rule out Anterior infarct , age undetermined Abnormal ECG When compared with ECG of 31-MAR-2020 07:31, Inverted T waves have replaced nonspecific T wave abnormality in Anterior leads
[2021-03-18] MEDS ORDERED: LIDOCAINE 2% 2 ML VIAL/AMP(20MG/ML) INFIL ONE (11:11)
[2021-03-18] MEDS ORDERED: fentaNYL citrate 100 MCG/2 ML VIAL ONE (11:11)
[2021-03-18] MEDS ORDERED: MIDAZOLAM HCL 1 MG/ML 2ML VIAL ONE (11:11)
[2021-03-18] MEDS ORDERED: PROPOFOL IV EMULSION 10 MG/ML 20 ML VIAL IV ONE (11:11)
[2021-03-18] MEDS ORDERED: ONDANSETRON INJ 2 MG/ML 2 ML VIAL ONE (11:18)
[2021-03-18] MEDS ORDERED: ATROPINE SULFATE 0.1 MG/ML 10ML SYR IV PRN (11:30)
[2021-03-18] MEDS ORDERED: ePHEDrine sulfate 50 MG/ML AMP IV PRN (11:30)
[2021-03-18] MEDS ORDERED: fentaNYL citrate 100 MCG/2 ML VIAL IV PRN (11:30)
[2021-03-18] MEDS ORDERED: DIATRIZOATE MEGLUMINE 30% 100ML VIAL INSTIL ONE (11:44)
--- NOTE | 2021-03-18 11:54 | Post Operative Brief Note ---
PG Immediate Post Op with CF Date of Surgery March 18, 2021 Pre & Post Diagnosis Operation Date: 03/18/21 10:10 Pre-Op Diagnosis: RUVJ STONE W/ MILD HYDROURETERONEPHROSIS Post-Op Diagnosis: RUVJ STONE W/ MILD HYDROURETERONEPHROSIS I identified the patient and participated in the time-out.: Yes Procedure Operation Date: 03/18/21 10:10 Actual Procedures p Cystoscopy, Right Retrograde Pyleogram, Righ Ureteral Stent Placement(Right) - Cuong Magallon MD Surgeon Cuong Magallon MD City Superintendent None Estimated Blood Loss 0 Findings Consistent with Post-Op Diagnosis Mild right hydro. Stent in good position. No signs of infection behind stone. Specimens Specimen Description: No specimen, per surgeon Drains Other (6x24 Right stent ) Anesthesia Type MAC Complications None Disposition Accompanied Patient To Recovery: Yes Disposition: Recovery Room
--- NOTE | 2021-03-18 12:09 | Operative Report ---
PG Post Operative Report Pre & Post Diagnosis Operation Date: 03/18/21 10:10 Pre-Op Diagnosis: RUVJ STONE W/ MILD HYDROURETERONEPHROSIS Post-Op Diagnosis: RUVJ STONE W/ MILD HYDROURETERONEPHROSIS I identified the patient and participated in the time-out.: Yes Procedure Operation Date: 03/18/21 10:10 Actual Procedures p Cystoscopy, Right Retrograde Pyleogram with radiographic interpretation, Righ Ureteral Stent Placement(Right) - Cuong Magallon MD Surgeon Cuong Magallon MD Furniture Builder None Estimated Blood Loss 0 Findings Consistent with Post-Op Diagnosis Normal urethra and bladder. Right retrograde pyelogram showed moderate hydronephrosis. Stent in good position. KUB showed calcifications in uterus previously seen on CT scan. Specimens None Drains 6 Micronesian by 24 cm right ureteral stent Anesthesia Type MAC Complications None Disposition Accompanied Patient To Recovery: Yes Disposition: Recovery Room Indications 60-year-old female presented emergency department with right flank pain and a CT scan showed a right distal ureteral calculus with upstream hydronephrosis. Her labs were stable and she was afebrile however her urinalysis was concerning for infection so risk and benefits of a stent were discussed and she consented for right stent placement. Received preoperative antibiotics in the form of ceftriaxone. Description of Procedure After informed consent was obtained, the patient was transported operative suite. MAC anesthesia was induced. She was placed in dorsolithotomy position prepped and draped in a sterile fashion. She had received preoperative ceftriaxone for antibiotic prophylaxis. An appropriate surgical timeout was performed. A 22 Micronesian rigid scope was inserted per urethra into the bladder. [place] cystoscopy revealed no stones or lesions. I turned my attention the right ureteral orifice and intubated this with a 5 Micronesian open-ended catheter. A right retrograde pyelogram was shot which showed mild hydronephrosis. A sensor wire was advanced into the kidney and confirmed fluoroscopically. A 6 Micronesian by 24 cm right ureteral stent was deployed with a good proximal coil in the renal pelvis and a good distal coil noted in the bladder. These were confirmed fluoroscopically. The bladder was emptied and the scope was removed. This concluded the end of the case. All counts were correct at the end of the case. I was present, scrubbed, and actively participated for the entire to the procedure. I attest to the content of the Intraoperative Record and any orders documented therein. Any exceptions are noted below.
--- NOTE | 2021-03-18 12:22 | Communication Note ---
Date of Service: March 18, 2021 Mrs. Canales is a 60 y/o WF with a PMHx of HTN, HLD, Asthma (well controlled), AR, and hypothyroisidm. She was hospitalized in the overnight hours with right flank pain d/t a 7.6mm obstructing stone in the Right UVJ. Does seem to have mild hydronephrosis. Afebrile without leukocytosis. Urinalysis is not grossly infected. Plan is for OR today for right ureteral stent. Currently on Flomax, and empirically on Rocephin. Pain at present. Has [place] on board with dilaudid for breakthrough. [place] snot appear to have needed anything for pain since admission. HD stable: 104/51 - 67 - 14 - 36.3 (tmax) - 95% on RA General: Resting comfortably in her hospital bed. Appears comfortable. Does not appear ill or toxic. NAD. Neck: No JVD. Negative hepatojugular reflex Cardiac: RRR without M/G/R Lungs: CTA without W/R/R Abdomen: Normoactive X4. Soft and nontender in all quadrants. No CVA tenderness noted. Extremities: No peripheral clubbing cyanosis or edema Neuro: A&O X4 cranial nerves II through XII are grossly intact no focal neuro deficits Skin: No obvious skin lesions or rashes lab data reviewed: WBC: 9.36 BUN/Cr: 22/0.96 UA: clear. 3+ blood but nitrite negative but leukocyte esterase positive. procalcitonin: not done 1. Obstructive uropathy +/- concurrent infection * patient for OR today for Right ureteral stent * urine cx ordered and pending. UA not grossly infected; however, would at least use abx prophylaxis regardless (may only require prophylaxis rather than 10 day course for "complicated UTI"). * no fever or leukocytosis * Blood cultures added * continue meds for pain control * urology on board-- appreciate recommendations * continue to follow * if all goes well, likely D/C tomorrow
[2021-03-18] MEDS ORDERED: ALBUTEROL HFA 8 GM INHALER INH PRN (12:41)
[2021-03-18] MEDS ORDERED: NAPROXEN 250 MG TAB PO PRN (12:47)
[2021-03-18] MEDS ORDERED: CHLORTHALIDONE 25 MG TAB PO SCH (13:15)
--- NOTE | 2021-03-18 13:44 | Fluoroscopy Report ---
FL retrograde includes kub CLINICAL HISTORY: Right-sided ureteral stent placement. COMPARISON STUDY: Abdomen and pelvis CT 03/18/2021. FLUOROSCOPY TIME: 13 seconds. FINDINGS: 9 fluoroscopic spot images of the abdomen and pelvis demonstrate retrograde opacification o f the right renal collecting system followed by placement of a right ureteral stent. The ureteral hannah nt appears in good position. Calcified uterine fibroids are noted. IMPRESSION: Fluoroscopy provided for right ureteral stent placement which appears in good position. ACT 112: Negative or not required by law. Electronically signed by: Idris Interiano M.D. 03/18/2021 1:43 PM
--- NOTE | 2021-03-18 15:12 | Anesthesiology Progress Note ---
Date of Service March 18, 2021 Anesthesia Post Procedure Vital Signs Vital Signs: Temp Pulse Pulse Pulse Resp BP BP 03/18/21 14:51 36.6 C 78 18 132/85 03/18/21 13:35 72 16 116/73 03/18/21 13:05 36.6 C 65 18 131/74 03/18/21 12:40 36.7 C 57 L 18 97/61 L 03/18/21 12:20 36.3 C L 68 18 107/62 03/18/21 12:10 62 18 110/72 03/18/21 12:03 36.3 C L 67 14 104/51 L 03/18/21 11:10 36.9 C 91 H 20 142/77 H 03/18/21 07:43 36.6 C 73 16 106/52 L 03/18/21 05:00 36.7 C 73 18 134/84 03/18/21 04:18 62 18 135/75 03/18/21 02:00 61 18 147/84 H 03/18/21 01:42 71 18 151/70 H 03/18/21 00:43 65 18 03/18/21 00:42 63 18 156/78 H 03/17/21 22:35 36.4 C L 77 18 191/92 H Pulse Ox 03/18/21 14:51 94 03/18/21 13:35 95 03/18/21 13:05 96 03/18/21 12:40 99 03/18/21 12:20 92 03/18/21 12:10 96 03/18/21 12:03 99 03/18/21 11:10 96 03/18/21 07:43 95 03/18/21 05:00 93 03/18/21 04:18 94 03/18/21 02:00 98 03/18/21 01:42 96 03/18/21 00:43 98 03/18/21 00:42 96 03/17/21 22:35 97 Pain Intensity Right Abdomen: Pain Intensity: 5 Transfer of Care Handoff Completed per policy Notes Mental Status: alert / awake / arousable and participated in evaluation Patient Amnestic to Procedure: Yes Nausea / Vomiting: adequately controlled Pain: adequately controlled Airway Patency, RR, SpO2: stable & adequate BP & HR: stable & adequate Hydration State: stable & adequate Anesthetic Complications: no major complications apparent and Pt Satisfied with anesthetic care
--- NOTE | 2021-03-18 15:35 | Electrocardiogram Report ---
Test Reason : Blood Pressure : / mmHG Vent. Rate : 074 BPM Atrial Rate : 074 BPM P-R Int : 144 ms QRS Dur : 098 ms QT Int : 406 ms P-R-T Axes : 033 -19 -12 degrees QTc Int : 450 ms Normal sinus rhythm Minimal voltage criteria for LVH, may be normal variant Cannot rule out Anterior infarct , age undetermined Abnormal ECG When compared with ECG of 31-MAR-2020 07:31, Inverted T waves have replaced nonspecific T wave abnormality in Anterior leads Confirmed by Beck Ribeiro ([id number]) on 03/18/2021 3:35:07 PM Referred By: Nawaf Vázquez Confirmed By:Beck Ribeiro
--- NOTE | 2021-03-18 16:31 | Discharge Summary ---
Date of Service March 18, 2021 Admission HPI Per Admitting Provider The patient is a 60-year-old female with past medical history including hypertension, right knee DJD, left knee DJD, hypothyroidism, hyperlipidemia, migraine, allergic dermatitis, allergic rhinitis, asthma and seizure disorder. She presents to the emergency department with persistent and worsening right flank and right lower quadrant pain over the past 2 days. Work-up in the emergency department included a CT scan of abdomen pelvis which showed a 7.6 mm right UVJ obstructing stone causing mild hydroureteronephrosis. Principal Diagnosis 1. 7.6 mm right ureteral stone with associated hydronephrosis s/p right ureteral stent 2. Right flank painsecondary to #1 Discharge Exam HD stable: 104/51 - 67 - 14 - 36.3 (tmax) - 95% on RA General: Resting comfortably in her hospital bed. Appears comfortable. Does not appear ill or toxic. NAD. Neck: No JVD. Negative hepatojugular reflex Cardiac: RRR without M/G/R Lungs: CTA without W/R/R Abdomen: Normoactive X4. Soft and nontender in all quadrants. No CVA tenderness noted. Extremities: No peripheral clubbing cyanosis or edema Neuro: A&O X4 cranial nerves II through XII are grossly intact no focal neuro deficits Skin: No obvious skin lesions or rashes Discharge Data Allergies Allergy/AdvReac Type Severity Reaction Status Date / Time carbamazepine [From Tegretol] Allergy Intermediate Hives Verified 03/27/21 08:39 divalproex sodium Allergy Intermediate Hives Verified 03/27/21 08:39 [From Depakote] phenytoin [From Dilantin] Allergy Intermediate Hives Verified 03/27/21 08:39 Consultations 03/18/21 01:52 Consult Urology Stat - Plan of care reviewed with Dr. Magallon, urologist e commerce solution architect - Pt afebrile, nontoxic, creatinine and WBC WNL on admission, no new labs at time of exam - Urine culture pending - continue IV Ceftriaxone per primary service, follow cultures - Discussed surgical intervention with cystoscopy and right ureteral stent placement acutely given concern for obstructing stone and infection - Discussed that stone will need to be treated in the future - Findings reviewed with Dr. Magallon. - Given her hydroureteronephrosis and concern for infection in the context of an obstructing right ureteral stone, will proceed with OR for cystoscopy, Right retrograde pyelogram and Right stent placement - Risks and benefits to be reviewed with patient by Dr. Magallon. OR notified. Preoperative CXR and EKG ordered. COVID-19 testing negative. - Will cover with scheduled IV Ceftriaxone preoperatively - She is agreeable with above plan, all questions answered - Keep NPO for procedure - Strain urine - Continue supportive care and management per primary service Operation Date: 03/18/21 10:10 Pre-Op Diagnosis: RUVJ STONE W/ MILD HYDROURETERONEPHROSIS Post-Op Diagnosis: RUVJ STONE W/ MILD HYDROURETERONEPHROSIS I identified the patient and participated in the time-out.: Yes Procedure Operation Date: 03/18/21 10:10 Actual Procedures p Cystoscopy, Right Retrograde Pyleogram with radiographic interpretation, Righ Ureteral Stent Placement(Right) - Cuong Magallon MD 03/18/21 16:02 Consult [facility] well digger Routine for urology FU Procedures Performed Operation Date: 03/18/21 10:10 Actual Procedures p Righ Ureteral Stent Placement(Right) - Cuong Magallon MD s Cystoscopy, Right Retrograde Pyleogram(Right) - Cuong Magallon MD Ordered Studies 03/18/21 00:06 CT abd pelvis IV con only Urgent FINDINGS: Lower chest: No acute abnormality Liver: Subcentimeter hypodensities are seen likely representing cysts but too small to characterize. Gallbladder and biliary tree: Cholelithiasis is seen without evidence of cholecystitis. No intra- or extrahepatic biliary ductal dilation. Pancreas: Unremarkable, no focal lesions. Spleen: Unremarkable. Adrenals: Unremarkable. Kidneys and ureters: There is mild left hydronephrosis and distal distention of the ureter. A 4 mm stone is in the right ureterovesicular junction. Nonobstructive stones are seen on the left. Bladder: Unremarkable. Bowel: Diverticulosis is seen without evidence of diverticulitis. A hiatal hernia is seen. Lymph nodes Retroperitoneal: Unremarkable. Mesenteric: Unremarkable. Pelvic: Unremarkable. Reproductive organs: Multiple calcified fibroids are seen. Peritoneum: Old epiploic appendagitis focus is seen in the left lower quadrant. Vessels: Atherosclerotic calcifications are seen. Abdominal wall: Unremarkable. Bones: Degenerative changes in the visualized spine. IMPRESSION: Obstructive right UVJ stone with proximal hydroureteronephrosis. Nonobstructing nephrolithiasis. 03/18/21 11:00 FL retrograde includes kub Routine FINDINGS: 9 fluoroscopic spot images of the abdomen and pelvis demonstrate retrograde opacification of the right renal collecting system followed by placement of a right ureteral stent. The ureteral stent appears in good position. Calcified uterine fibroids are noted. IMPRESSION: Fluoroscopy provided for right ureteral stent placement which appears in good position. Hospital Course (1) Obstructive uropathy: -7.6 mm right UVJ stone with mild upstream hydronephrosis. No associated pyelonephritis -s/p right ureteral stent -urine cx ordered and pending. UA not grossly infected; however, will continue abx prophylaxis x 5 days -no fever or leukocytosis -Blood cultures added- -Seen by urology who feels patient can be adequately managed as an outpatient as she has no S/S of sepsis -We will discharge today with empiric Cipro, Flomax to help with bladder relaxation, and hydrocodone as needed for pain. To follow-up with urology. May need ESWL -PCP/urology to follow-up on final urine culture and change antibiotic based on culture data but urinalysis not grossly infected Follow-up with urology By CMS guidelines, a determination that the admission or continued stay is not medically necessary has been made by a member of the UR committee and a physician for this hospital stay, therefore a Code 44 will be completed and the Inpatient admission will be changed to outpatient. Total Time Total Time Spent Total Time Spent (In Minutes): 45 min Discharge Plan Discharge Items Patient Disposition: Home - Self-Care Reason For Visit: RUVJ STONE W/ MILD HYDROURETERONEPHROSIS Discharge Diagnosis: 1. Obstructing nephrolithiasis right UVJ s/p stenting Condition on Discharge: Good Activity: Resume your previous activity Activity Comment: push fluids Non-emergency contact: Primary Care Provider and Urologist Call non-emergency contact if: you have any medication questions and your pain is worsening Follow-up/Referrals: Carol Mcleod CRNP [Nurse Practitioner] - (Urology will phone patient to schedule procedure and follow up.) Nawaf Vázquez MD [Primary Care Provider] - (Patient wishes to schedule her own follow up appt.) Diet: Heart Healthy Addtl Attending Provider Instructions: - you were hospitalized for an obstructing stone noted in the right ureterovesicular junction. - stent placed - you will be discharged with Flomax (to help with bladder relaxation), empiric antibiotic therapy and pain medication to take as needed - pain medication can be habit forming. Take only as needed for severe pain. - follow up with urology for possible shockwave lithotripsy - return to the ED for new or worsening symptoms Pending Studies at Discharge: No Studies:: final urine culture-- pending Stand-Alone Forms: My [facility] Medications and DC Order Prescriptions: New hydrocodone-acetaminophen 5-325 mg tablet 1 tab PO Q6H PRN (Reason: pain) Qty: 36 RF: 0 Continued Zyrtec 10 mg capsule 10 mg PO HS Qty: 90 RF: 3 montelukast 10 mg tablet 10 mg PO HS Qty: 90 RF: 3 budesonide-formoterol [Symbicort] 160-4.5 mcg/actuation HFA aerosol inhaler 2 puff INH BID Qty: 3 RF: 3 levothyroxine 100 mcg Capsule 100 mcg PO QAM RF: 0 simvastatin 40 mg Tablet 40 mg PO HS RF: 0 chlorthalidone 25 mg tablet 25 mg PO Q2D RF: 0 naproxen sodium [Aleve] 220 mg Tablet 220 mg PO Q8H PRN (Reason: Pain) RF: 0 omeprazole 20 mg capsule,delayed release(DR/EC) 20 mg PO QAM RF: 0 albuterol sulfate 90 mcg/actuation HFA aerosol inhaler 2 puff inhalation Q4 PRN (Reason: Asthma) RF: 0 No Action tamsulosin [Flomax] 0.4 mg capsule 0.4 mg PO HS RF: 0 Discharge Orders: Discharge Order (Routine); Ordered 03/18/21 Ordered By: Luz Bob/Other Patient Handouts: Having a Ureteral Stent, Treating Kidney Stones ... Admission Data Admit Date/Time: 03/18/21 02:28 Attending Provider: Eric Russell Admit Provider: Markus Ramos Primary Care Provider: Nawaf Vzáquez Other Providers: Ramesh Bradley ; Markus Ramos Other Interventions: Discharge Summary Assessment (RN) Last Done: 03/18/21 16:53 Supervising Physician Co-Signing Physician Notes Patient seen and examined on the day of discharge. I agree with the discharge summary by Luz FERNANDES. I have reviewed the chart including labs, imaging and plans for discharge. patient feeling better after stent placed, eating okay, has follow up with urology - Ureteral stone, stent placed, discharge on Cipro and Flomax, close follow up with urology to discuss definitive stone management Coding Level of Care Code OBSERV/HOSP SAME DATE LVL 1 Diagnoses Obstructive uropathy N13.9 Time Spent (min) 45
[2021-03-18] MEDS ORDERED: TAMSULOSIN HCL 0.4 MG CAP PO SCH (21:00)
[2021-03-18] MEDS ORDERED: CETIRIZINE HCL 10 MG TABLET PO SCH (21:00)
[2021-03-18] MEDS ORDERED: MONTELUKAST SODIUM 10 MG TABLET PO SCH (21:00)
[2021-03-18] MEDS ORDERED: SIMVASTATIN 40 MG TAB PO SCH (21:00)
[2021-03-19] MEDS ORDERED: cefTRIAXone SODIUM 2,000 MG in DEXTROSE 5% 50 ML IV SCH (02:00)
[2021-03-19] MEDS ORDERED: LEVOTHYROXINE SODIUM 100 MCG TABLET PO SCH (06:30)
[2021-03-19] MEDS ORDERED: PANTOprazole 40 MG TAB PO SCH (09:00)
== END 2021-03-18 18:05 | disposition home or self-care (01) | DRG 661 ==
LOC: ED 22:32 → SUATTDRO 03-18 02:28 → 3W 03-18 02:28